=== PATIENT | female | born 1995 | race Caucasian/White ===

== ENCOUNTER 2017-10-13 13:40 | Emergency (ER) | payer OTHER ==
[~2017-10-13] VITALS: Ht 152.4 cm; Wt 86.4 kg
[2017-10-13 13:59] VITALS: TEMP 37.1; Ht 152.4 cm; Wt 86.4 kg
[2017-10-13] MEDS ORDERED: BUPR-83 PO (14:14)
[2017-10-13] MEDS ORDERED: HYD10 PO (14:14)
[2017-10-13] MEDS ORDERED: HYDR5TAB57 PO (14:14)
[2017-10-13] MEDS ORDERED: ONDANSETRON INJ 2 MG/ML 2 ML VIAL IV STA (14:15)
[2017-10-13] MEDS ORDERED: SODIUM CHLORIDE 0.9% 1000ML 1,000 ML IV STA (14:15)
[2017-10-13] MEDS ORDERED: HYDROmorphone INJ 0.5 MG/0.5 ML SYR IV STA (14:19)
[2017-10-13] MEDS ORDERED: KETOROLAC TROMETHAMINE 30 MG/ML VIAL IV STA (14:19)
[2017-10-13 15:05] LABS: BASO % 0.5 %; BASO ABS # 0.04 K/uL (0-0.2); EOS % 1.8 %; EOS ABS # 0.16 K/uL (0-0.5); HEMOGLOBIN 14.4 g/dL (12.0-16.0); IG# 0.04 K/uL (0.00-0.02); LYMPH % 40.8 %; LYMPH ABS # 3.56 K/uL (1.2-3.4); MEAN CELL VOLUME 85.1 fL (80-100); MEAN CORPUSCULAR HEMOGLOBIN 29.9 pg (25-34); MEAN CORPUSCULAR HGB CONC 35.1 g/dl (32-36); MEAN PLATELET VOLUME 10.6 fL (7.4-10.4); MONO % 8.8 %; MONO ABS # 0.77 K/uL (0.11-0.59); NEUT % 47.6 %; NEUT ABS # 4.16 K/uL (1.4-6.5); PLATELET COUNT 318 K/uL (130-400); RED CELL DISTRIBUTION WIDTH CV 12.8 % (11.5-14.5); WHITE BLOOD COUNT 8.73 K/uL (4.8-10.8)
[2017-10-13 15:34] LABS: ALBUMIN 3.8 gm/dl (3.4-5.0); CALCIUM 8.5 mg/dl (8.5-10.1); TOTAL PROTEIN 7.6 gm/dl (6.4-8.2)
--- NOTE | 2017-10-13 15:50 | DIAGNOSTIC IMAGING REPORT ---
ABDOMEN AND PELVIS CT WITHOUT CONTRAST CT DOSE: 1609.09 mGy.cm HISTORY: FLANK PAIN, right TECHNIQUE: Multiaxial CT images of the abdomen and pelvis were performed without the use of intravenous and oral contrast according to the standard department stone protocol. A dose lowering technique was utilized adhering to the principles of ALARA. COMPARISON STUDY: None. FINDINGS: Subpleural nodular densities within the left lower lobe posteriorly may be due to mild dependent change. These are likely benign given the patient's age. No pneumoperitoneum. No pneumatosis. No fractures within the visualized osseous structures. The unenhanced liver, spleen, adrenal glands, pancreas, and gallbladder are unremarkable. No retroperitoneal lymphadenopathy. Subcentimeter mesenteric lymph nodes do not meet CT criteria for pathologic involvement. Multiple bilateral renal calculi. Largest stone within the upper pole the right kidney measures 4 mm. No ureteral stones. No hydronephrosis. Normal bladder. Suboptimal evaluation for bowel pathology due to the lack of intravenous and oral contrast. However, there is no definite bowel wall thickening or obstruction. The visualized appendix is unremarkable. There is an intrauterine device which appears to be within the lower uterine segment. IMPRESSION: 1. Bilateral nephrolithiasis. No ureteral stones. No hydronephrosis. 2. The intrauterine device appears to be within the lower uterine segment. Recommend follow-up pelvic ultrasound for further evaluation. Electronically signed by: Daniel Menchaca M.D. 10/13/2017 3:49 PM Dictated Date/Time: 10/13/2017 3:42 PM
[2017-10-13 16:58] LABS: CREATININE 1.03 mg/dl (0.60-1.20)
--- NOTE | 2017-10-13 17:57 | DIAGNOSTIC IMAGING REPORT ---
PELVIC COMPLETE NON OB CLINICAL HISTORY: right flank pain, IUD PAIN COMPARISON STUDY: None FINDINGS: The uterus measured 8.8 cm. Intrauterine device within the lower uterine segment and cervix.. The endometrial stripe measured 8 mm. The right ovary measured 3.2 cm maximum dimension. Normal vascular flow. The left ovary measured 2.9 cm maximum dimension. Normal vascular flow. There is no ultrasonographic evidence of ovarian torsion. It should be noted that ovarian torsion can be present with normal Doppler ultrasonographic findings. There was no evidence of pathologic free pelvic fluid. IMPRESSION: 1. Intrauterine device located abnormally low within the central uterine canal and extending to the cervix. 2. Remainder of the study is unremarkable. The above report was generated using voice recognition software. It may contain grammatical, syntax or spelling errors. Electronically signed by: Elfego Chen M.D. 10/13/2017 5:56 PM Dictated Date/Time: 10/13/2017 5:54 PM
[2017-10-13] MEDS ORDERED: CIPR-255 PO (18:34)
[2017-10-13] MEDS ORDERED: CIPROFLOXACIN 500 MG TAB PO STA (18:34)
[2017-10-13] MEDS ORDERED: HYDROCORTISONE SOD SUCCINATE 100 MG/2 ML VIAL IV STA (18:34)
[2017-10-13] MEDS ORDERED: ONDANSETRON HOME PACK 4MG OD TAB PO ONE (18:45)
[2017-10-13] MEDS ORDERED: OXYCODONE IR HOME PACK PO ONE (18:45)
[2017-10-13 20:00] VITALS: BP 118/75; PULSE 83; O2SAT 98
--- NOTE | 2017-10-13 21:48 | EMERGENCY ROOM VISIT NOTE ---
History Report prepared by Domi: Amna Patrick Under the Supervision of: Dr. Marcos Martin M.D. First contact with patient: 14:08 Chief Complaint: URINARY SYMPTOMS Stated Complaint: BACK PAIN,PELVIC PAIN,VOMITING,HURTS IN URINATE Nursing Triage Summary: triage note; pt reports lower back pain x 4 days. pt reports pain is increasing. pt reports pain with urination. pt reports hx of kidney stones. pt reports hx of adreanal hyperplasia. 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 She notes her symptoms began with mild back pain 4 days police captain but then her pain has worsened over the past few days so much that she vomited this morning. She rates her pain as a "steady 6/10" in severity and she describes her pain as "jabbing." The patient has lower back pain, right sided abdominal pain, pelvic pain, and pain with urination. She has a history of kidney stones and adrenal hyperplasia. Pt denies LOC, headache, fevers, chills, diaphoresis, visual changes, neck pain, chest pain, breathing difficulties, nausea, melena, hematochezia, numbness, weakness, lymphadenopathy, rash, or other complaints. Her LNMP was 1.5 weeks ago but she notes she has been getting her menstrual cycle every 2 weeks for the past month, however she went to her [facility] and she has an appointment 3 weeks from today to get her IUD removed. The patient regularly takes cortex (3 times a day) and Wellbutrin (once a day). Source of History: patient Onset: 4 days police captain Position: back (lower), other (bladder) Symptom Intensity: "steady 6/10" in severity Quality: other ("jabbing") Timing: worsening Associated Symptoms: + abdominal pain (right sided), + back pain (lower), + urinary symptoms (pain with urination) Note: Positive pelvic pain Review of Systems See HPI for pertinent positives and negatives. A total of ten systems were reviewed and were otherwise negative. Past Medical & Surgical Medical Problems: (1) Adrenal hyperplasia Surgical Problems: (1) S/P tonsillectomy Family History No pertinent family history Social History Smoking Status: Never Smoker Smokeless Tobacco Use: Unknown Marital Status: in relationship Current/Historical Medications Scheduled Bupropion (Wellbutrin), 100 MG PO DAILY Ciprofloxacin Hcl (Cipro), 500 MG PO BID Hydrocortisone (Cortef), 10 MG PO BID Hydrocortisone (Cortef), 5 MG PO QPM Allergies Coded Allergies: Cefpodoxime (Unverified Allergy, Intermediate, HIVES, 10/13/17) Amoxicillin (Unverified Adverse Reaction, Severe, PASS OUT, LOW BLOOD PRESSURE, 10/13/17) Physical Exam Vital Signs Date Time Temp Pulse Resp B/P (MAP) Pulse Ox O2 Delivery O2 Flow Rate FiO2 10/13/17 20:00 83 16 118/75 98 Room Air 10/13/17 19:11 79 114/63 99 Room Air 10/13/17 18:01 76 112/59 99 Room Air 10/13/17 15:08 79 18 116/69 99 Room Air 10/13/17 13:59 37.1 98 18 127/63 99 Room Air Physical Exam GENERAL: Awake, alert, uncomfortable-appearing, in no distress HENT: Normocephalic, atraumatic. Oropharynx unremarkable. EYES: Normal conjunctiva. Sclera non-icteric. NECK: Supple. No nuchal rigidity. FROM. No masses. RESPIRATORY: Clear to auscultation. No wheezes. No rales. Normal respiratory effort. CARDIAC: Normal rate. Normal rhythm. No murmurs. No rubs. Extremities warm and well perfused. Pulses equal. No JVD. GI: Soft, non-distended. No tenderness to palpation. No rebound or guarding. No masses. RECTAL: Deferred. MUSCULOSKELETAL: Atraumatic. Chest examination reveals no tenderness. The back is symmetrical on inspection without obvious abnormality. Right flank and CVA tenderness. No joint edema. LOWER EXTREMITIES: Calves are equal size bilaterally and non-tender. No edema. No discoloration. NEURO: Normal sensorium. No sensory or motor deficits noted. SKIN: No rash or jaundice noted. Medical Decision & Procedures ER Provider Diagnostic Interpretation: Radiology results as stated below per my review and radiologist interpretation: ABDOMEN AND PELVIS CT WITHOUT CONTRAST CT DOSE: 1609.09 mGy.cm HISTORY: FLANK PAIN, right TECHNIQUE: Multiaxial CT images of the abdomen and pelvis were performed without the use of intravenous and oral contrast according to the standard department stone protocol. A dose lowering technique was utilized adhering to the principles of ALARA. COMPARISON STUDY: None. FINDINGS: Subpleural nodular densities within the left lower lobe posteriorly may be due to mild dependent change. These are likely benign given the patient's age. No pneumoperitoneum. No pneumatosis. No fractures within the visualized osseous structures. The unenhanced liver, spleen, adrenal glands, pancreas, and gallbladder are unremarkable. No retroperitoneal lymphadenopathy. Subcentimeter mesenteric lymph nodes do not meet CT criteria for pathologic involvement. Multiple bilateral renal calculi. Largest stone within the upper pole the right kidney measures 4 mm. No ureteral stones. No hydronephrosis. Normal bladder. Suboptimal evaluation for bowel pathology due to the lack of intravenous and oral contrast. However, there is no definite bowel wall thickening or obstruction. The visualized appendix is unremarkable. There is an intrauterine device which appears to be within the lower uterine segment. IMPRESSION: 1. Bilateral nephrolithiasis. No ureteral stones. No hydronephrosis. 2. The intrauterine device appears to be within the lower uterine segment. Recommend follow-up pelvic ultrasound for further evaluation. Electronically signed by: Daniel Menchaca M.D. 10/13/2017 3:49 PM PELVIC COMPLETE NON OB CLINICAL HISTORY: right flank pain, IUD PAIN COMPARISON STUDY: None FINDINGS: The uterus measured 8.8 cm. Intrauterine device within the lower uterine segment and cervix.. The endometrial stripe measured 8 mm. The right ovary measured 3.2 cm maximum dimension. Normal vascular flow. The left ovary measured 2.9 cm maximum dimension. Normal vascular flow. There is no ultrasonographic evidence of ovarian torsion. It should be noted that ovarian torsion can be present with normal Doppler ultrasonographic findings. There was no evidence of pathologic free pelvic fluid. IMPRESSION: 1. Intrauterine device located abnormally low within the central uterine canal and extending to the cervix. 2. Remainder of the study is unremarkable. The above report was generated using voice recognition software. It may contain grammatical, syntax or spelling errors. Electronically signed by: Elfego Chen M.D. 10/13/2017 5:56 PM Laboratory Results 10/13/17 14:53 Red Blood Count 4.82, Mean Corpuscular Volume 85.1, Mean Corpuscular Hemoglobin 29.9, Mean Corpuscular Hemoglobin Concent 35.1, Mean Platelet Volume 10.6, Neutrophils (%) (Auto) 47.6, Lymphocytes (%) (Auto) 40.8, Monocytes (%) (Auto) 8.8, Eosinophils (%) (Auto) 1.8, Basophils (%) (Auto) 0.5, Neutrophils # (Auto) 4.16, Lymphocytes # (Auto) 3.56, Monocytes # (Auto) 0.77, Eosinophils # (Auto) 0.16, Basophils # (Auto) 0.04 10/13/17 14:53 Test 10/13/17 14:15 10/13/17 14:53 Urine Color YELLOW Urine Appearance CLOUDY (CLEAR) Urine pH 6.5 (4.5-7.5) Urine Specific Dana 1.020 (1.000-1.030) Urine Protein NEG (NEG) Urine Glucose (UA) NEG (NEG) Urine Ketones NEG (NEG) Urine Occult Blood NEG (NEG) Urine Nitrite NEG (NEG) Urine Bilirubin NEG (NEG) Urine Urobilinogen NEG (NEG) Urine Leukocyte Esterase SMALL (NEG) Urine WBC (Auto) 5-10 /hpf (0-5) Urine RBC (Auto) 0-4 /hpf (0-4) Urine Hyaline Casts (Auto) 1-5 /lpf (0-5) Urine Epithelial Cells (Auto) >30 /lpf (0-5) Urine Bacteria (Auto) 1+ (NEG) Urine Pathogenic Casts /lpf (0) Urine Test NEG (NEG) White Blood Count 8.73 K/uL (4.8-10.8) Red Blood Count 4.82 M/uL (4.2-5.4) Hemoglobin 14.4 g/dL (12.0-16.0) Hematocrit 41.0 % (37-47) Mean Corpuscular Volume 85.1 fL (80-100) Mean Corpuscular Hemoglobin 29.9 pg (25-34) Mean Corpuscular Hemoglobin Concent 35.1 g/dl (32-36) Platelet Count 318 K/uL (130-400) Mean Platelet Volume 10.6 fL (7.4-10.4) Neutrophils (%) (Auto) 47.6 % Lymphocytes (%) (Auto) 40.8 % Monocytes (%) (Auto) 8.8 % Eosinophils (%) (Auto) 1.8 % Basophils (%) (Auto) 0.5 % Neutrophils # (Auto) 4.16 K/uL (1.4-6.5) Lymphocytes # (Auto) 3.56 K/uL (1.2-3.4) Monocytes # (Auto) 0.77 K/uL (0.11-0.59) Eosinophils # (Auto) 0.16 K/uL (0-0.5) Basophils # (Auto) 0.04 K/uL (0-0.2) RDW Standard Deviation 39.0 fL (36.4-46.3) RDW Coefficient of Variation 12.8 % (11.5-14.5) Immature Granulocyte % (Auto) 0.5 % Immature Granulocyte # (Auto) 0.04 K/uL (0.00-0.02) Anion Gap 8.0 mmol/L (3-11) Est Creatinine Clear Calc Drug Dose 82.2 ml/min Estimated GFR () 88.1 Estimated GFR (Non- 76.0 BUN/Creatinine Ratio 12.6 (10-20) Calcium Level 8.5 mg/dl (8.5-10.1) Total Bilirubin 0.8 mg/dl (0.2-1) Direct Bilirubin 0.2 mg/dl (0-0.2) Aspartate Amino Transf (AST/SGOT) 15 U/L (15-37) Alanine Aminotransferase (ALT/SGPT) 22 U/L (12-78) Alkaline Phosphatase 53 U/L (45-117) Total Protein 7.6 gm/dl (6.4-8.2) Albumin 3.8 gm/dl (3.4-5.0) Lipase 115 U/L (73-393) Laboratory results reviewed by me Medications Administered Medications (Trade) Dose Ordered Sig/Katie Route Start Time Stop Time Status Last Admin Dose Admin Ondansetron HCl (Zofran Inj) 4 mg NOW STAT IV 10/13/17 14:15 10/13/17 14:18 DC 10/13/17 15:04 4 MG Sodium Chloride 1,000 ml @ 999 mls/hr Q1H1M STAT IV 10/13/17 14:15 10/13/17 15:15 DC 10/13/17 15:04 999 MLS/HR Hydromorphone HCl (Dilaudid Inj) 0.5 mg NOW STAT IV 10/13/17 14:19 10/13/17 14:21 DC 8/6/18 15:05 0.5 MG Ketorolac Tromethamine (Toradol Inj) 10 mg NOW STAT IV 10/13/17 14:19 10/13/17 14:21 DC 10/13/17 15:05 10 MG Hydrocortisone Sodium Succinate (Solu-Cortef IV) 100 mg NOW STAT IV 10/13/17 18:34 10/13/17 18:36 DC 10/13/17 19:08 100 MG Ciprofloxacin (Cipro Tab) 500 mg NOW STAT PO 10/13/17 18:34 10/13/17 18:36 DC 10/13/17 19:09 500 MG ED Course 1414: The patient was evaluated in room B11. A complete history and physical exam was performed. 1415: Ordered Sodium Chloride 1000 ml @ 999 mls/hr IV, Zofran Inj 4 mg IV 1419: Ordered Toradol Inj 10 mg IV, Dilaudid Inj 0.5 mg IV 1558: I checked on the patient at this time. She was feeling better pain bellamy. She will go to ultrasound. 1829: I checked on the patient at this time. She is feeling better .She will receive a stress dose of steroids. 1834: Ordered Cipro Tab 500 mg PO, Solu-Cortef IV 100 mg IV 1845: Ordered Oxycodone HCL 1 homepack PO, Ondansetron HCl 1 homepack PO 0: I reevaluated the patient. Discussed results and discharge instructions: She verbalized understanding and agreement. The patient is ready for discharge. Medical Decision No prior records in the EMR. Triage Nursing notes reviewed and agree them. The patient's history was concerning for flank and abdominal pain. Differential diagnosis: Etiologies such as renal colic, UTI, appendicitis, diverticulitis, mesenteric ischemia, aortic pathology, infections, inflammatory bowel disease, PUD, biliary pathology, as well as others were entertained. Physical examination findings: As above. ER treatment provided: IV Toradol IV Zofran IV Dilaudid On reassessment the patient felt better. Hydrocortisone 100 mg IV Oral Cipro Diagnostic interpretation by me: The labs revealed an unremarkable CBC and chemistry panel. LFTs negative. Urinalysis revealed some bacteria. Moderate epithelial cells noted. Esterase noted. Culture sent. Imaging studies: CT of the abdomen and pelvis and ultrasound as above. The patient complained of right flank pain. She has obvious kidney stones seen in the right kidney. There is no obvious ureterolithiasis seen. She noted symptoms of a urinary tract infection and has a slightly abnormal urinalysis. Because of the symptoms she will be treated. The remainder of her imaging did not reveal any significant abnormalities. She did not really have significant pelvic symptoms. An ultrasound was performed to evaluate the ovary and other issues. She does have a low-lying IUD and has a follow-up with [facility] for this. I do not believe that this is causing the pain as she had CVA tenderness. Also right flank tenderness. She did not have any deep lower right quadrant tenderness. No suprapubic tenderness. She took her steroids after vomiting today. She was given a stress dose of steroids. The patient will be prescribed Cipro. She has been on this in the past without any issues. I did discuss risks and benefits. The patient will follow-up closely as an outpatient. If she worsens in any way she will be back. She plans on returning home tomorrow. She feels comfortable with conservative management. I gave my usual and customary discussion regarding this issue. By the evaluation outlined above other emergent etiologies such as those listed in the differential, as well as others, were deemed relatively unlikely. The patient was educated about the findings as listed above. All questions were answered and the patient was pleased with the treatment. Return instructions were outlined and the patient was discharged in stable condition. The patient was referred to her PCP for follow-up for a recheck of the current condition. Medication Reconcilliation Current Medication List: was personally reviewed by me Blood Pressure Screening Patient's blood pressure: Normal blood pressure Blood pressure disposition: Did not require urgent referral Impression Primary Impression: Right flank pain Additional Impressions: Symptoms of urinary tract infection Nephrolithiasis IUD (intrauterine device) in place Scribe Attestation The scribe's documentation has been prepared under my direction and personally reviewed by me in its entirety. I confirm that the note above accurately reflects all work, treatment, procedures, and medical decision making performed by me. Departure Information Dispostion Home / Self-Care Prescriptions Ciprofloxacin Hcl (CIPRO) 500 Mg Tab 500 MG PO BID, #13 TAB Prov: Marcos Martin MD 10/13/17 Forms HOME CARE DOCUMENTATION FORM, IMPORTANT VISIT INFORMATION Patient Instructions My [facility] Additional Instructions Ciprofloxacin(Cipro) 500mg: Take one pill twice daily for 7 days. All antibiotics can cause diarrhea. If this occurs and you feel worse or it does not resolve in 1-2 days follow up with your doctor or return to the Emergency Department as this could be signs of serious underlying problems. If you experience any pain in your tendons or any tendon injury return to the ER for re -evaluation. Any medication can cause an allergic reaction, stop the pills immediately and return to the ER for rash, hives, breathing difficulties, or swelling. Oxycodone 5 mg: Take 1-2 pills every 6 hours as needed for pain. Avoid alcohol , operating machinery or dangerous equipment, working on ladders or roofs, DRIVING, or situations where being under the influence may be dangerous. It is recommended to use a stool softener such as Colace, 100mg twice daily while taking this medication to avoid constipation. Zofran 4 mg oral dissolving tablets: take one tablet and allow it to melt in your mouth every 4 hours as needed for nausea. Ibuprofen(Motrin, Advil) may be used for fever or pain. Use 600mg every six hours as needed. Take with food. Avoid using more than 2400mg in a 24 hour period. Do not use 2400mg per day for more than three consecutive days without physician direction. Prolonged inappropriate use can lead to stomach upset or ulcers. (AND/OR) Acetaminophen(Tylenol) may be used for fever or pain. Use 1000mg every six hours as needed. Avoid using more than 4000mg in a 24 hour period. Rest and drink plenty of fluids. Continue current medications. Return to the ER immediately for worsening or persistent abdominal pain, vomiting, fevers, back or flank pain, worsening of your condition, or as needed. Follow up with your primary physician within 2-3 days for a recheck of the current condition. Problem Qualifiers
== END 2017-10-13 20:00 | disposition home or self-care (01) ==
LOC: C.EDB 13:42
DX: N20.0 Calculus of kidney (principal); R30.0 Dysuria; R10.2 Pelvic and perineal pain; Z88.0 Allergy status to penicillin; Z97.5 Presence of (intrauterine) contraceptive device; Z88.1 Allergy status to other antibiotic agents

== ENCOUNTER 2018-04-05 15:02 | Inpatient (IN) ==
[2018-04-05] MEDS ORDERED: SODIUM CHLORIDE 0.9% 1000ML 1,000 ML IV ONE ×2 (15:03→18:38)
[2018-04-05 15:31] LABS: Basophils # (auto) 0.02 K/uL (0-0.2); Basophils % (auto) 0.2 %; Eosinophils # (auto) 0.06 K/uL (0-0.5); Eosinophils % (auto) 0.5 %; Hematocrit (blood only) 39.8 % (37-47); Hemoglobin 13.8 g/dL (12.0-16.0); Immature Granulocytes # (auto) 0.05 K/uL (0.00-0.02); Immature Granulocytes % (auto) 0.4 %; Lymphocytes # (auto) 1.28 K/uL (1.2-3.4); Lymphocytes % (auto) 9.7 %; Mean Corpuscular Hgb Conc 34.7 g/dL (32-36); Mean Platelet Volume 10.4 fL (7.4-10.4); Monocytes # (auto) 0.95 K/uL (0.11-0.59); Monocytes % (auto) 7.2 %; Neutrophils # (auto) 10.87 K/uL (1.4-6.5); Platelet Count 282 K/uL (130-400); RDW Coefficient of Variation 12.7 % (11.5-14.5); RDW Standard Deviation 40.3 fL (36.4-46.3); Red Blood Count 4.63 M/uL (4.2-5.4); White Blood Count 13.23 K/uL (4.8-10.8)
[2018-04-05] MEDS ORDERED: CEFEPIME 1,000 MG in SYRINGE 0 ML IV STA (15:47)
[2018-04-05] MEDS ORDERED: HYDROmorphone INJ 0.5 MG/0.5 ML SYR IV PRN ×2 (15:47→21:24)
[2018-04-05 15:49] LABS: Albumin Level 3.5 gm/dl (3.4-5.0); BUN Creatinine Ratio 15.9 (10-20); Calcium 8.4 mg/dl (8.5-10.1); Creatinine Clr Calc Pharmacy 83.3 ml/min; Est GFR (African American) 88.5; Est GFR (Non-African American) 76.4; Potassium 3.5 mmol/L (3.5-5.1)
[2018-04-05] MEDS ORDERED: cefTRIAXone SODIUM 1,000 MG/50 ML BAG IV STA (15:57)
[2018-04-05 16:07] LABS: Bilirubin,Total 1.6 mg/dl (0.2-1); Globulin 3.4 gm/dl (2.5-4.0); Total Protein 6.9 gm/dl (6.4-8.2)
[2018-04-05] MEDS ORDERED: PIPERACILL/TAZOBAC CONSULT ACTIVE PRN (16:10)
[2018-04-05] MEDS ORDERED: PIPERACILLIN/TAZOBACTAM 4.5 GM/120 ML BAG IV ONE (16:10)
[2018-04-05] MEDS ORDERED: HYDROCORTISONE SOD 25 MG in SYRINGE 0 ML IV ONE (16:30)
[2018-04-05] MEDS ORDERED: HYDROCORTISONE SOD SUCCINATE 100 MG/2 ML VIAL ONE (16:38)
[2018-04-05] MEDS ORDERED: KETOROLAC TROMETHAMINE 15 MG/ML VIAL IV STA (17:10)
[2018-04-05 19:13] LABS: Appearance Urine Cloudy (Clear); Bacteria Urine Automated 4+ (Negative); Bilirubin Urine Negative (Negative); Color Urine Yellow; Epithelial Cell Urine Auto >30 /lpf (0-5); Glucose Urine UA Negative (Negative); Ketones Urine Negative (Negative); Leukocyte Esterase Urine 3+ (Negative); Nitrite Urine Negative (Negative); Protein Urine Negative (Negative); Specific Gravity Urine 1.017 (1.000-1.030); Urobilinogen Urine Negative (Negative); WBC Urine Automated >30 /hpf (0-5)
[2018-04-05 19:25] LABS: Cast Urine Automated 0 /lpf (0-5)
--- NOTE | 2018-04-05 19:52 | History & Physical Report ---
Date of Service April 05, 2018 Assessment & Plan (1) Recurrent kidney stones: New episode of renal colic, patient intolerant to p.o. secondary to vomiting secondary to pain. Urology was consulted and will plan to perform procedure on patient if she does not spontaneously pass the stone overnight. N.p.o. after midnight. Continue supportive care with Dilaudid, oxycodone, Toradol as needed as well as antiemetic therapy. Flomax is started tonight and aggressive IV fluids. (2) Complicated UTI (urinary tract infection): Dysuria is present in setting of bacteruria. Despite presence of at these suggesting contamination, will continue with empiric levofloxacin. She denies any fevers or chills. Will monitor on telemetry in the setting of infection and adrenal insufficiency history. She does meet sepsis criteria but does not appear clinically septic. Tachycardia is likely secondary to pain and leukocytosis secondary to inflammation from stone and possibly infection. Continue stress dose steroids for now. 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 (4) Adrenal insufficiency: History of congenital adrenal hyperplasia, on Cortef 25 mg p.o. daily. Typical stress dose for her is doubling her Cortef p.o., however, because she cannot tolerate p.o. will continue with hydrocortisone 50 mg IV every 6 until clinical improvement and then recommend taper back to regular dose. (5) DVT prophylaxis: SCDs, ambulation Full code Disposition-telemetry Michaelle Augustin DO [facility] Hospitalist History of Present Illness Chief Complaint: flank pain, nausea and vomiting Primary Care Provider: NO PCP 23-year-old female presents for the second time in 24 hours for severe right- sided flank pain and persistent vomiting on arrival home. She presented to the ER overnight last night after being awoken with severe right-sided flank pain. She was diagnosed with a kidney stone and felt better after pain medications so was sent home with oxycodone and Flomax. She did not fill the Flomax and try to take an oxycodone but vomited it up. Her pain persisted so she came back to the ER. A white blood cell count is 13 and she is now more tachycardic. She denies any fevers or chills. Urinalysis reveals contamination, but with dysuria UTI is suspected. She underwent an abdomen and pelvis CT without contrast which revealed an obstructing 4 mm proximal right ureteral calculus with resultant right-sided hydronephrosis. She also had bilateral nonobstructing largely punctate renal calculi that were seen. She does have a history of frequent kidney stones, quoting 11 episodes in the past. She denies ever being stented before and has never had surgery to have these removed. She does admit to drinking excessive coffee and soda products, and not using as much water to stay hydrated as she should. She does have a history of congenital adrenal hyperplasia and takes Cortef regularly. Her stress dose is typically double her typical dose (25mg daily), however at this time she is vomiting and unable to tolerate p.o. Her abdominal/flank pain is improved somewhat with Dilaudid in the ER. She is also been given Zosyn and IV fluids as well as Zofran. Of note, she has recently moved to the area from [facility] and does not have an established primary care physician. Review of systems reveals abnormal uterine bleeding, occurring since her Mirena IUD was removed in October 2017. She has not seen a slab lifting supervisor for this issue as she still needs to establish care in this area. She reports her menstrual cycle is very heavy, and comes every 3 weeks. She denies intercourse at this time, but otherwise is not using any contraception. Urine test is negative today. Dr. Tello was contacted with [facility] urology and will plan to stand her tomorrow if she does not spontaneously pass her stone. Allergies Allergy/AdvReac Type Severity Reaction Status Date / Time cefpodoxime Allergy Severe HIVES Unverified 04/05/18 16:27 amoxicillin AdvReac Intermediate PASS OUT, Unverified 04/05/18 16:27 LOW BLOOD PRESSURE Home Medications Home Medications Medication Instructions Recorded Confirmed Type hydrocortisone 5 mg PO QPM 04/05/18 04/05/18 History hydrocortisone 10 mg PO BID 04/05/18 04/05/18 History ondansetron 4 mg PO Q6H PRN #12 tab 04/05/18 04/05/18 Rx oxycodone 5 - 10 mg PO Q6H PRN 04/05/18 04/05/18 History tamsulosin [Flomax] 0.4 mg PO DAILY #7 cap 04/05/18 04/05/18 Rx Past Med/Surg History Medical History Abnormal uterine bleeding (Chronic) 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 Physical Exam 2 Vital Signs (Past 24 Hours): Last Vital Signs Temp 37.2 C 04/05/18 15:09 Pulse 105 H 04/05/18 19:32 Resp 22 04/05/18 19:32 BP 109/57 L 04/05/18 19:32 Pulse Ox 100 04/05/18 19:32 CONSTITUTIONAL: WNWD, vitals as above, generally well-appearing EYES: PERRL, normal conjuctivae, no scleral icterus ENT: MM are dry RESPIRATORY: clear to auscultation bilaterally, no crackles, rales or wheezes, normal respiratory effort CARDIOVASCULAR: tachy rate and rhythm, S1 and 2 heard without murmurs, gallops or rubs, no JVD, no peripheral edema GASTROINTESTINAL: normal bowel sounds, soft, nontender, no hepatomegaly, no guarding, +CVA tenderness on the Right MUSCULOSKELETAL: strength 5/5 throughout, head is normocephalic and atraumatic SKIN: warm and dry NEUROLOGIC: CN 2-12 grossly intact, no sensory deficit, normal cognition, no gross focal deficits. PSYCHIATRIC: alert cooperative and oriented to person, place and time. Euthymic mood Results & Data Laboratory Results Short CBC 04/05/18 Range/Units 15:23 WBC 13.23 H (4.8-10.8) K/uL Hgb 13.8 (12.0-16.0) g/dL Hct 39.8 (37-47) % Plt Count 282 (130-400) K/uL BMP 04/05/18 15:23 Sodium 136 Potassium 3.5 Chloride 107 Carbon Dioxide 23 BUN 16 Creatinine 1.02 Glucose 101 H Calcium 8.4 L Liver Function 04/05/18 Range/Units 15:23 Total Bilirubin 1.6 H D (0.2-1) mg/dl AST 17 (15-37) U/L ALT 29 (12-78) U/L Alkaline Phosphatase 54 (45-117) U/L Albumin 3.5 (3.4-5.0) gm/dl Urine 04/05/18 Range/Units 19:07 Urine Color Yellow Urine Appearance Cloudy H (Clear) Urine pH 5.0 (4.5-7.5) Ur Specific [place] 1.017 (1.000-1.030) Urine Protein Negative (Negative) Urine Glucose (UA) Negative (Negative) Diagnostic Findings CT A/P: IMPRESSION: 1. Obstructing 4 mm proximal right ureteral calculus with resultant mild right hydronephrosis. 2. Bilateral nonobstructing largely punctate renal calculi. 3. Thin mural calcification in the ovaries. This is of uncertain significance. A nonurgent pelvic ultrasound could be considered on an outpatient basis though the most recent pelvic ultrasound from October was normal, when this finding was also present on the concurrent CT. Medications Administered Dilaudid 0.5mg IV Hydrocortisone 100mg IV NSS-2L Zosyn-4.5gm IV Toradol 15mg IV Code Status & VTE Plan Code Status Full VTE Prophylaxis Plan VTE Prophylaxis will be ordered: Yes Reason for no VTE drug order: Treatment not tolerated Critical Care Time Critical Care Time: No
[2018-04-05] MEDS ORDERED: PROMETHAZINE HCL 25 MG TAB PO PRN (21:24)
[2018-04-05] MEDS ORDERED: HYDROCORTISONE SOD SUCCINATE 100 MG/2 ML VIAL IV SCH (21:24)
[2018-04-05] MEDS ORDERED: OXYCODONE/ACETAMINOPHEN 5mg/325mg TAB PO PRN (21:24)
[2018-04-05] MEDS ORDERED: KETOROLAC 30 MG/ML VIAL IV PRN (21:24)
[2018-04-05] MEDS ORDERED: POLYETHYLENE (MIRALAX) 17 GM PACK PO PRN (21:24)
[2018-04-05] MEDS ORDERED: LEVOFLOXACIN/D5W 750 MG/150 ML BAG IV SCH (22:00)
[2018-04-05] MEDS: TAMSULOSIN HCL 0.4 MG CAP PO SCH (22:53)
[2018-04-05] MEDS: SODIUM CHLORIDE 0.9% 1000ML 1,000 ML IV SCH (22:53)
[2018-04-05] MEDS: HYDROCORTISONE SOD 50 MG in SYRINGE 0 ML IV SCH (23:45)
[2018-04-05] MEDS: ACETAMINOPHEN 325 MG TAB PO PRN (23:46)
[2018-04-06] MEDS: ONDANSETRON INJ 2 MG/ML 2 ML VIAL IV PRN (04:47)
[2018-04-06] MEDS: HYDROCORTISONE SOD 50 MG in SYRINGE 0 ML IV SCH ×2 (05:49→12:48)
[2018-04-06] MEDS: SODIUM CHLORIDE 0.9% 1000ML 1,000 ML IV SCH ×3 (05:50→19:29)
[2018-04-06] MEDS ORDERED: INFLUENZA VIRUS QUAD VACCINE 0.5 ML SYR IM ONE (06:15)
[2018-04-06] MEDS ORDERED: INFLUENZA ADMINISTRATION CHARGE ONE (06:15)
[2018-04-06 07:20] LABS: Basophils # (auto) 0.02 K/uL (0-0.2); Basophils % (auto) 0.2 %; Hematocrit (blood only) 36.3 % (37-47); Hemoglobin 12.3 g/dL (12.0-16.0); Immature Granulocytes # (auto) 0.04 K/uL (0.00-0.02); Immature Granulocytes % (auto) 0.4 %; Lymphocytes # (auto) 0.82 K/uL (1.2-3.4); Lymphocytes % (auto) 8.7 %; Mean Corpuscular Hgb Conc 33.9 g/dL (32-36); Mean Corpuscular Volume 85.4 fL (80-100); Mean Platelet Volume 10.2 fL (7.4-10.4); Monocytes # (auto) 0.64 K/uL (0.11-0.59); Monocytes % (auto) 6.8 %; Neutrophils # (auto) 7.89 K/uL (1.4-6.5); Neutrophils % (auto) 83.9 %; Platelet Count 231 K/uL (130-400); RDW Coefficient of Variation 12.9 % (11.5-14.5); RDW Standard Deviation 40.3 fL (36.4-46.3); Red Blood Count 4.25 M/uL (4.2-5.4); White Blood Count 9.41 K/uL (4.8-10.8)
[2018-04-06 08:00] LABS: BUN Creatinine Ratio 12.3 (10-20); Calcium 7.6 mg/dl (8.5-10.1); Est GFR (Non-African American) 96.6; Potassium 3.5 mmol/L (3.5-5.1)
--- NOTE | 2018-04-06 08:51 | Urology Consultation ---
Date of Consultation April 06, 2018 Assessment & Plan (1) Calculus of proximal right ureter: (2) Renal colic: (3) Complicated UTI (urinary tract infection): (4) Nausea & vomitinyo F with obstructing 4mm R ureteral stone, mild hydronephrosis, fevers , +UA. Hx of adrenall insufficiency - taking hydrocortisone BID for management. Febrile with tachycardia overnight, still with nausea. No emesis since ED. Pain better controlled with IV pain medication. Rating 3/10 at this time. Given clinical presentation overnight, we discussed the recommendation to intervene with ureteral stent placement to allow maximal drainage in detail. Patient is very cooperative and agreeable to this plan. Denies difficulty with anesthesia in the past. Plan to proceed with cystoscopy, R retrograde pyelogram and R ureteral stent placement today with Dr. Canales. Risk and benefits reviewed. Covered with Levaquin IV daily. All questions answered. Definitive stone management to be determined. Thank you for the consultation, we will continue to follow with primary team. History of Present Illness Reason for Consultation: UTI, obstructing R ureteral stone, febrile Requesting Physician: Dr. Alanis Attending Physician: Ivonne Alanis MD History of Present Illness 23yo F with long standing history of adrenal insufficiency and bilateral nephrolithiasis. Presented to ED with acute onset R flank pain, nausea and emesis yesterday. CT reveals obstructing 4mm midureteral stone, mild hydro. Bilateral stable renal calculi. Abnormal UA, UC&S prelim positive gram negative bacilli. Fever spiked at 39.4C with tachycardia last evening at midnight. WBC slightly elevated, Cr stable. Hx stones since age 12, this is her 11th stone. She has never required intervention, never required admission for stones in the past. Follows with Dr. Bermudez, Urology, in [facility]. Living in [facility] for the next year, in [employer] school. No previous formal metabolic evaluation, but has been told she had a "high protein" diet in the past that could contribute. Largest stone spontaneously passed was 8mm per patient report. Allergies Allergy/AdvReac Type Severity Reaction Status Date / Time cefpodoxime Allergy Severe HIVES Unverified 04/05/18 16:27 amoxicillin AdvReac Intermediate PASS OUT, Unverified 04/05/18 16:27 LOW BLOOD PRESSURE Home Medications Home Medications Medication Instructions Recorded Confirmed Type hydrocortisone 5 mg PO QPM 04/05/18 04/05/18 History hydrocortisone 10 mg PO BID 04/05/18 04/05/18 History ondansetron 4 mg PO Q6H PRN #12 tab 04/05/18 04/05/18 Rx oxycodone 5 - 10 mg PO Q6H PRN 04/05/18 04/05/18 History tamsulosin [Flomax] 0.4 mg PO DAILY #7 cap 04/05/18 04/05/18 Rx Patient History Medical History Abnormal uterine bleeding (Chronic) 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), late onset (Chronic) Recurrent kidney stones (Chronic) Surgical History S/P tonsillectomy and adenoidectomy (Resolved) Status post third molar tooth extraction (Resolved) Family History Other No pertinent family history Social History Current Living Situation: Significant Other Other Information That Helps Us Care for You: No Feels Safe at Home: Yes Safety Concerns: Feels Safe At This Time Smoking Status: Never smoker Do You Dip or Chew Tobacco: No Second Hand Exposure: No Tobacco Cessation Education Requested by Patient: No Hx Alcohol Use: No Hx Substance Use: No Beliefs That Will Affect Care: None Preferred Language: Guyanese Communication Ability: Effective Oral And Maxillofacial Surgeon Required: No Review of Systems Constitutional: + fever (last evening) and + fatigue; no chills Eyes: no problem reported Ear, Nose, Mouth, Throat: no ear pain Respiratory: no cough, no chest congestion and no dyspnea Cardiovascular: no chest pain Gastrointestinal: + nausea; no abdominal pain and no vomiting Genitourinary (Female): + dysuria and + urinary frequency; no urinary hesitancy and no hematuria Musculoskeletal: no back pain and no neck pain Integumentary: no rash Neurologic: no behavioral changes Psychiatric: no hopelessness Endocrine: no polydipsia Hematologic / Lymphatic: no easy bleeding Physical Exam 2 Vital Signs (Past 24 Hours): Last Vital Signs Temp 37.3 C 04/06/18 08:10 Pulse 93 H 04/06/18 08:10 Resp 19 04/06/18 08:10 BP 107/73 04/06/18 08:10 Pulse Ox 98 04/06/18 08:10 Constitutional: cooperative; no acute distress Eyes: no photophobia ENMT: Nose: no epistaxis Neck: trachea midline Respiratory: no respiratory distress, no labored breathing and does not use accessory muscles Cardiovascular: Vessels: no JVD Gastrointestinal (Abdomen): Percussion/Palpation: abdomen soft; abdomen nontender Skin: no rashes, warm and dry Neurologic: awake; not confused Psychiatric: Orientation: alert and oriented x 3 Apperance: appropriately groomed Eye Contact: good eye contact Genitourinary: mild suprapubic tenderness, reports full bladder at time of evaluation Results & Data Laboratory Results Laboratory Tests 04/05/18 04/05/18 04/05/18 03:30 15:23 15:23 WBC 12.80 H 13.23 H Sodium Potassium BUN 16 Creatinine 1.02 Glucose POC Lactic Acid Vic 04/05/18 04/06/18 04/06/18 15:29 06:37 06:37 WBC 9.41 Sodium 138 Potassium 3.5 BUN 10 D Creatinine 0.84 Glucose 101 H POC Lactic Acid Vic 1.94 H _ (1) Nausea & vomiting Vomiting Intractability: non-intractable Vomiting type: unspecified Qualified Code(s): R11.2 - Nausea with vomiting, unspecified
[2018-04-06] MEDS ORDERED: PROMETHAZINE HCL 12.5 MG in SODIUM CHLORIDE 0.9% 50 ML IV PRN (09:14)
[2018-04-06] MEDS ORDERED: ONDANSETRON INJ 2 MG/ML 2 ML VIAL IV PRN (09:14)
[2018-04-06] MEDS ORDERED: ePHEDrine sulfate 50 MG/ML AMP IV PRN (09:14)
[2018-04-06] MEDS ORDERED: HYDROmorphone INJ 1 MG/ML SYRINGE IV PRN (09:14)
[2018-04-06] MEDS ORDERED: PHENYLEPHRINE 100MCG/ML 5ML SYR IV PRN (09:14)
[2018-04-06] MEDS ORDERED: ATROPINE SULFATE 0.1 MG/ML 10ML SYR IV PRN (09:14)
[2018-04-06] MEDS ORDERED: fentaNYL citrate 100 MCG/2 ML VIAL IV PRN (09:14)
--- NOTE | 2018-04-06 09:21 | Anesthesiology Consultation ---
Date of Service April 06, 2018 Assessment & Plan Chart Review Chart Review: Acceptable Risk for Surgery and Patient NOT seen in Pre Admission Testing Consults Requested none ASA [id number] Proposed Anesthesia Anesthesia Type: General Risk / Benefits Reviewed With: PT / POA / Parent / Guardian, Accepts Plan and Informed Consent Obtained Additional Notes Pt takes hydrocortison since age 1 for adrenal insufficiency. Was given her stress dose this am NPO Date Last Intake of Fluids: 04/06/18 Time Last Intake of Fluids: 09:04 Last Intake of Fluids Comment: sip with percocet Date Last Intake of Solids: 04/04/18 Time Last Intake of Solids: 18:30 History Surgery Operation Date: 04/06/18 12:45 Proposed Procedures p Cystoscopy Retrograde, Right Stent Insertion - Fernando Canales MD Height/Weight Height: 1.5 m Weight: 93 kg Allergies Allergy/AdvReac Type Severity Reaction Status Date / Time cefpodoxime Allergy Severe HIVES Unverified 04/05/18 16:27 amoxicillin AdvReac Intermediate PASS OUT, Unverified 04/05/18 16:27 LOW BLOOD PRESSURE Medications Home Medications Medication Instructions Recorded Confirmed Last Taken hydrocortisone 5 mg PO QPM 04/05/18 04/05/18 Unknown hydrocortisone 10 mg PO BID 04/05/18 04/05/18 Unknown ondansetron 4 mg PO Q6H PRN #12 tab 04/05/18 04/05/18 Unknown oxycodone 5 - 10 mg PO Q6H PRN 04/05/18 04/05/18 Unknown tamsulosin [Flomax] 0.4 mg PO DAILY #7 cap 04/05/18 04/05/18 Unknown Active Medications Generic Name Dose Route Start Last Admin Trade Name Freq PRN Reason Stop Dose Admin Acetaminophen 650 mg 04/05/18 21:24 04/05/18 23:46 Tylenol PO 05/05/18 21:23 650 mg Q4H PRN Administration Pain or Fever Hydromorphone HCl 0.5 mg 04/05/18 21:24 04/05/18 22:50 Dilaudid IV 04/19/18 21:23 0.5 mg Q1H PRN Administration Severe Pain Levofloxacin/Dextrose 750 mg in 150 mls @ 100 mls/hr 04/05/18 22:00 04/06/18 01:03 Levaquin/D5w IV 04/15/18 21:59 Infused Q24H ALEX Infusion Sodium Chloride 1,000 mls @ 150 mls/hr 04/05/18 21:24 04/06/18 05:50 Nss 1000ml IV 05/05/18 21:23 150 mls/hr .Q6H40M ALEX Administration Hydrocortisone Sodium 1 mls @ 4 mls/min 04/06/18 00:00 04/06/18 05:49 Succinate 50 mg/ Syringe IV 05/06/18 00:00 4 mls/min Q6 ALEX Administration Ondansetron HCl 4 mg 04/05/18 21:24 04/06/18 04:47 Zofran IV 05/05/18 21:23 4 mg Q8H PRN Administration Nausea Oxycodone/Acetaminophen 1 tab 04/05/18 21:24 04/06/18 08:59 Percocet 5mg/325mg PO 04/19/18 21:23 1 tab Q4H PRN Administration Pain Tamsulosin HCl 0.4 mg 04/05/18 21:24 04/05/18 22:53 Flomax PO 05/05/18 21:23 0.4 mg HS ALEX Administration Past Medical History Medical History Abnormal uterine bleeding (Chronic) 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), 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 Recurrent kidney stones (Chronic) Morbid obesity Past Family History Family History Other No pertinent family history Past Surgical History Surgical History S/P tonsillectomy and adenoidectomy (Resolved) Status post third molar tooth extraction (Resolved) Past Anesthesia History No Hx of Anesthesia Complications and No Family Hx of Anesthesia Complications History of PONV No Motion Sickness Screening History of Motion Sickness: No Social History Smoking Status: Never smoker Do You Dip or Chew Tobacco: No Hx Alcohol Use: No Hx Substance Use: No Exercise / Class Metabolic Activity II 4-5 Yardwork/Stairs/Walk up hill Physical Exam Vital Signs Last Vital Signs Temp 37.3 C 04/06/18 08:10 Pulse 93 H 04/06/18 08:10 Resp 19 04/06/18 08:10 BP 107/73 04/06/18 08:10 Pulse Ox 98 04/06/18 08:10 Constitutional + morbidly obese ENMT Mouth: no TMJ abnormality and no TMJ clicking Thyromental Distance: > or= 3.5 Finger Breadths Mallampati Class: III Neck normal visual inspection; neck extension not limited Respiratory Auscultation: lungs clear to auscultation bilaterally Cardiovascular Rate/Rhythm: regular rhythm; + abnormal rate (Sinus tachy) Psychiatric Orientation: alert and oriented x 3 Testing Laboratory Results 04/06/18 06:37 04/06/18 06:37 Urine Color Yellow 04/05/18 19:07 Urine Appearance Cloudy (Clear) H 04/05/18 19:07 Urine pH 5.0 (4.5-7.5) 04/05/18 19:07 Ur Specific [place] 1.017 (1.000-1.030) 04/05/18 19:07 Urine Protein Negative (Negative) 04/05/18 19:07 Urine Glucose (UA) Negative (Negative) 04/05/18 19:07 Urine Ketones Negative (Negative) 04/05/18 19:07 Urine Nitrite Negative (Negative) 04/05/18 19:07 Ur Leukocyte Esterase 3+ (Negative) H 04/05/18 19:07 Urine WBC (Auto) >30 /hpf (0-5) H 04/05/18 19:07 Urine RBC (Auto) 0-4 /hpf (0-4) 04/05/18 19:07 U Hyaline Cast (Auto) 0 /lpf (0-5) 04/05/18 19:07 U Epithel Cells (Auto) >30 /lpf (0-5) H 04/05/18 19:07 Urine Bacteria (Auto) 4+ (Negative) H 04/05/18 19:07
--- NOTE | 2018-04-06 09:26 | Anesthesiology Consultation ---
Date of Service April 06, 2018 Assessment & Plan (1) Encounter for pre-operative examination: Chart Review Chart Review: Acceptable Risk for Surgery and Patient NOT seen in Pre Admission Testing Patient on 50mg IV hydrocortisone q6 hours, last dose 0549 04/06/2018. Consider larger stress dose for procedure. Consults Requested none NPO Date Last Intake of Fluids: 04/06/18 Time Last Intake of Fluids: 09:04 Last Intake of Fluids Comment: sip with percocet Date Last Intake of Solids: 04/04/18 Time Last Intake of Solids: 18:30 History Surgery Operation Date: 04/06/18 12:45 Proposed Procedures p Cystoscopy Retrograde, Right Stent Insertion - Fernando Canales MD Height/Weight Height: 4 ft 11 in Weight: 93 kg Allergies Allergy/AdvReac Type Severity Reaction Status Date / Time cefpodoxime Allergy Severe HIVES Unverified 04/05/18 16:27 amoxicillin AdvReac Intermediate PASS OUT, Unverified 04/05/18 16:27 LOW BLOOD PRESSURE Medications Home Medications Medication Instructions Recorded Confirmed Last Taken hydrocortisone 5 mg PO QPM 04/05/18 04/05/18 Unknown hydrocortisone 10 mg PO BID 04/05/18 04/05/18 Unknown ondansetron 4 mg PO Q6H PRN #12 tab 04/05/18 04/05/18 Unknown oxycodone 5 - 10 mg PO Q6H PRN 04/05/18 04/05/18 Unknown tamsulosin [Flomax] 0.4 mg PO DAILY #7 cap 04/05/18 04/05/18 Unknown Active Medications Generic Name Dose Route Start Last Admin Trade Name Freq PRN Reason Stop Dose Admin Acetaminophen 650 mg 04/05/18 21:24 04/05/18 23:46 Tylenol PO 05/05/18 21:23 650 mg Q4H PRN Administration Pain or Fever Hydromorphone HCl 0.5 mg 04/05/18 21:24 04/05/18 22:50 Dilaudid IV 04/19/18 21:23 0.5 mg Q1H PRN Administration Severe Pain Levofloxacin/Dextrose 750 mg in 150 mls @ 100 mls/hr 04/05/18 22:00 04/06/18 01:03 Levaquin/D5w IV 04/15/18 21:59 Infused Q24H ALEX Infusion Sodium Chloride 1,000 mls @ 150 mls/hr 04/05/18 21:24 04/06/18 05:50 Nss 1000ml IV 05/05/18 21:23 150 mls/hr .Q6H40M ALEX Administration Hydrocortisone Sodium 1 mls @ 4 mls/min 04/06/18 00:00 04/06/18 05:49 Succinate 50 mg/ Syringe IV 05/06/18 00:00 4 mls/min Q6 ALEX Administration Ondansetron HCl 4 mg 04/05/18 21:24 04/06/18 04:47 Zofran IV 05/05/18 21:23 4 mg Q8H PRN Administration Nausea Oxycodone/Acetaminophen 1 tab 04/05/18 21:24 04/06/18 08:59 Percocet 5mg/325mg PO 04/19/18 21:23 1 tab Q4H PRN Administration Pain Tamsulosin HCl 0.4 mg 04/05/18 21:24 04/05/18 22:53 Flomax PO 05/05/18 21:23 0.4 mg HS ALEX Administration Past Medical History Medical History Abnormal uterine bleeding (Chronic) 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), 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 Recurrent kidney stones (Chronic) Morbid obesity Past Family History Family History Other No pertinent family history Past Surgical History Surgical History S/P tonsillectomy and adenoidectomy (Resolved) Status post third molar tooth extraction (Resolved) Social History Smoking Status: Never smoker Do You Dip or Chew Tobacco: No Hx Alcohol Use: No Hx Substance Use: No Physical Exam Vital Signs Last Vital Signs Temp 37.3 C 04/06/18 08:10 Pulse 93 H 04/06/18 08:10 Resp 19 04/06/18 08:10 BP 107/73 04/06/18 08:10 Pulse Ox 98 04/06/18 08:10 Testing Laboratory Results 04/06/18 06:37 04/06/18 06:37 Urine Color Yellow 04/05/18 19:07 Urine Appearance Cloudy (Clear) H 04/05/18 19:07 Urine pH 5.0 (4.5-7.5) 04/05/18 19:07 Ur Specific [place] 1.017 (1.000-1.030) 04/05/18 19:07 Urine Protein Negative (Negative) 04/05/18 19:07 Urine Glucose (UA) Negative (Negative) 04/05/18 19:07 Urine Ketones Negative (Negative) 04/05/18 19: Urine Nitrite Negative (Negative) 04/05/18 19:07 Ur Leukocyte Esterase 3+ (Negative) H 04/05/18 19:07 Urine WBC (Auto) >30 /hpf (0-5) H 04/05/18 19:07 Urine RBC (Auto) 0-4 /hpf (0-4) 04/05/18 19:07 U Hyaline Cast (Auto) 0 /lpf (0-5) 04/05/18 19:07 U Epithel Cells (Auto) >30 /lpf (0-5) H 04/05/18 19:07 Urine Bacteria (Auto) 4+ (Negative) H 04/05/18 19:07
[2018-04-06] MEDS ORDERED: LIDOCAINE HCL 2% 2 ML VIAL/AMP(20MG/ML) INFIL ONE (09:39)
[2018-04-06] MEDS ORDERED: DEXAMETHASONE SOD INJ 4 MG/ML VIAL ONE (09:39)
[2018-04-06] MEDS ORDERED: GLYCOPYRROLATE 0.2 MG/ML VIAL ONE (09:39)
[2018-04-06] MEDS ORDERED: NEOSTIGMINE METHYLSULFATE 5 MG/5 ML SYR ONE (09:39)
[2018-04-06] MEDS ORDERED: PROPOFOL IV EMULSION 10 MG/ML 20 ML VIAL IV ONE (09:39)
[2018-04-06] MEDS ORDERED: ONDANSETRON INJ 2 MG/ML 2 ML VIAL ONE (09:39)
[2018-04-06] MEDS ORDERED: fentaNYL citrate 100 MCG/2 ML VIAL ONE (09:40)
[2018-04-06] MEDS ORDERED: MIDAZOLAM HCL 1 MG/ML 2ML VIAL ONE (09:40)
[2018-04-06] MEDS ORDERED: IOTHALAMATE MEGLUMINE II 17.2% 250 ML VIAL ONE (10:41)
[2018-04-06] MEDS ORDERED: HYDROCORTISONE SOD SUCCINATE 100 MG/2 ML VIAL ONE (11:18)
--- NOTE | 2018-04-06 11:19 | Emergency Department Note ---
Entered by Petar Robles acting as a scribe for History of Present Illness General Chief complaint: Kidney Stone Stated complaint: KIDNEY STONE Time Seen by Provider: 04/05/18 15:03 Source: patient History of Present Illness Provider complaint: kidney stone Onset (ago): hour(s) (last night) Location: abdomen (mostly right flank) Radiation: back Pain Consistency: + constant Maximum Pain Intensity: 8 Quality: + other (kidney stone) Associated symptoms: + nausea/vomiting The patient is a 23 year old female who presents to the Emergency Room with complaints of a kidney stone since last night. The patient reports pain in her right flank and she rates this pain as an 8/10. The patient reports she has a history of kidney stones stating she has had 11 stones in the past. The patient added that she has been able to pass some of her past kidney stones with no pain. The patient also notes nausea stating she has not been able to keep any food down. The patient also reported she tried taking Zofran and oxycodone prior to arrival but vomited up both of them. The patient states she feels extremely tired. The patient noted that she has a history of adrenal hyperplasia. CT and labs from last night reviewed in EMR. Patient found to have a 4 mm proximal ureteral stone on the right on CT imaging. UA however suspicious for infection. Home Medications Home Medications Medication Instructions Recorded Confirmed Type hydrocortisone 5 mg PO QPM 04/05/18 04/05/18 History hydrocortisone 10 mg PO BID 04/05/18 04/05/18 History ondansetron 4 mg PO Q6H PRN #12 tab 04/05/18 04/05/18 Rx oxycodone 5 - 10 mg PO Q6H PRN 04/05/18 04/05/18 History tamsulosin [Flomax] 0.4 mg PO DAILY #7 cap 04/05/18 04/05/18 Rx Allergies Allergy/AdvReac Type Severity Reaction Status Date / Time cefpodoxime Allergy Severe HIVES Unverified 04/05/18 16:27 amoxicillin AdvReac Intermediate PASS OUT, Unverified 04/05/18 16:27 LOW BLOOD PRESSURE Past Med/Surg History Medical History Abnormal uterine bleeding (Chronic) 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), 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 Recurrent kidney stones (Chronic) Morbid obesity Surgical History S/P tonsillectomy and adenoidectomy (Resolved) Status post third molar tooth extraction (Resolved) Family History Other No pertinent family history Social History Current Living Situation: Significant Other Other Information That Helps Us Care for You: No Feels Safe at Home: Yes Safety Concerns: Feels Safe At This Time Smoking Status: Never smoker Do You Dip or Chew Tobacco: No Hx Alcohol Use: No Hx Substance Use: No Beliefs That Will Affect Care: None Preferred Language: Argentine Communication Ability: Effective Print Shop Assistant Required: No Review of Systems See HPI for pertinent positives & negatives. and A total of 10 systems reviewed and were otherwise negative Physical Exam Vital Signs Vital Signs - 24 hr 04/05/18 15:09 04/05/18 15:44 04/05/18 16:01 Temperature 37.2 C Temperature Source Oral Sepsis Recent Fever Within 48 Hours No Sepsis New/Unexplained Change in Mental Status No Sepsis Action Taken by Nursing No Action Required Pulse Rate 136 H Pulse Rate [Apical] 107 H 103 H Pulse Rate [Right Finger] Pulse Rhythm [Apical] Pulse Rhythm [Right Finger] Pulse Strength [Right Finger] Respiratory Rate 20 23 19 Respiratory Effort / Characteristics Non-Labored Spontaneous Non-Labored Respiratory Depth Normal Normal Respiratory Pattern Regular Blood Pressure 113/67 Blood Pressure [Right Arm] 116/90 112/71 Blood Pressure Mean 82 Blood Pressure Mean [Right Arm] 98 84 Blood Pressure Position [Right Arm] Pulse Oximetry 97 95 100 Oxygen Delivery Method Room Air Room Air Room Air 04/05/18 16:30 04/05/18 17:00 04/05/18 17:01 Temperature Temperature Source Sepsis Recent Fever Within 48 Hours Sepsis New/Unexplained Change in Mental Status Sepsis Action Taken by Nursing Pulse Rate 109 H 95 H 101 H Pulse Rate [Apical] Pulse Rate [Right Finger] Pulse Rhythm [Apical] Pulse Rhythm [Right Finger] Pulse Strength [Right Finger] Respiratory Rate 37 H 39 H 40 H Respiratory Effort / Characteristics Respiratory Depth Respiratory Pattern Blood Pressure 115/72 118/67 Blood Pressure [Right Arm] Blood Pressure Mean 86 84 Blood Pressure Mean [Right Arm] Blood Pressure Position [Right Arm] Pulse Oximetry 100 99 100 Oxygen Delivery Method 04/05/18 17:31 04/05/18 18:00 04/05/18 18:01 Temperature Temperature Source Sepsis Recent Fever Within 48 Hours Sepsis New/Unexplained Change in Mental Status Sepsis Action Taken by Nursing Pulse Rate 102 H 103 H 113 H Pulse Rate [Apical] Pulse Rate [Right Finger] Pulse Rhythm [Apical] Pulse Rhythm [Right Finger] Pulse Strength [Right Finger] Respiratory Rate 35 H 25 H 24 Respiratory Effort / Characteristics Respiratory Depth Respiratory Pattern Blood Pressure 118/65 110/64 Blood Pressure [Right Arm] Blood Pressure Mean 82 79 Blood Pressure Mean [Right Arm] Blood Pressure Position [Right Arm] Pulse Oximetry 97 96 Oxygen Delivery Method Room Air Room Air 04/05/18 19:01 04/05/18 19:32 04/05/18 20:15 Temperature Temperature Source Sepsis Recent Fever Within 48 Hours Sepsis New/Unexplained Change in Mental Status Sepsis Action Taken by Nursing Pulse Rate Pulse Rate [Apical] 105 H 105 H 99 H Pulse Rate [Right Finger] Pulse Rhythm [Apical] Regular Pulse Rhythm [Right Finger] Pulse Strength [Right Finger] Respiratory Rate 14 22 19 Respiratory Effort / Characteristics Respiratory Depth Respiratory Pattern Blood Pressure Blood Pressure [Right Arm] 113/64 109/57 L 100/64 Blood Pressure Mean Blood Pressure Mean [Right Arm] 80 74 76 Blood Pressure Position [Right Arm] Pulse Oximetry 98 100 100 Oxygen Delivery Method Room Air Room Air Room Air 04/05/18 20:30 04/05/18 21:00 04/06/18 00:01 Temperature 37.7 C H 39.4 C H Temperature Source Oral Oral Sepsis Recent Fever Within 48 Hours Sepsis New/Unexplained Change in Mental Status Sepsis Action Taken by Nursing Pulse Rate Pulse Rate [Apical] 100 H 106 H 117 H Pulse Rate [Right Finger] Pulse Rhythm [Apical] Pulse Rhythm [Right Finger] Pulse Strength [Right Finger] Respiratory Rate 22 20 18 Respiratory Effort / Characteristics Non-Labored Spontaneous Respiratory Depth Normal Respiratory Pattern Regular Blood Pressure Blood Pressure [Right Arm] 112/67 114/61 124/66 Blood Pressure Mean Blood Pressure Mean [Right Arm] 82 78 85 Blood Pressure Position [Right Arm] Lying Lying Pulse Oximetry 99 100 98 Oxygen Delivery Method Room Air Room Air Room Air 04/06/18 01:19 04/06/18 04:44 04/06/18 08:10 Temperature 37.2 C 36.7 C 37.3 C Temperature Source Oral Oral Oral Sepsis Recent Fever Within 48 Hours Sepsis New/Unexplained Change in Mental Status Sepsis Action Taken by Nursing Pulse Rate Pulse Rate [Apical] 100 H Pulse Rate [Right Finger] 93 H Pulse Rhythm [Apical] Pulse Rhythm [Right Finger] Pulse Strength [Right Finger] Respiratory Rate 18 19 Respiratory Effort / Characteristics Respiratory Depth Respiratory Pattern Blood Pressure Blood Pressure [Right Arm] 108/57 L 107/73 Blood Pressure Mean Blood Pressure Mean [Right Arm] 74 84 Blood Pressure Position [Right Arm] Lying Pulse Oximetry 98 98 Oxygen Delivery Method Room Air Room Air 04/06/18 09:24 Temperature 37 C Temperature Source Oral Sepsis Recent Fever Within 48 Hours Sepsis New/Unexplained Change in Mental Status Sepsis Action Taken by Nursing Pulse Rate Pulse Rate [Apical] Pulse Rate [Right Finger] 20 L Pulse Rhythm [Apical] Pulse Rhythm [Right Finger] Regular Pulse Strength [Right Finger] Normal Respiratory Rate 20 Respiratory Effort / Characteristics Non-Labored Spontaneous Respiratory Depth Normal Respiratory Pattern Blood Pressure Blood Pressure [Right Arm] 111/71 Blood Pressure Mean Blood Pressure Mean [Right Arm] 84 Blood Pressure Position [Right Arm] Sitting Pulse Oximetry 20 L Oxygen Delivery Method Room Air GENERAL: alert, uncomfortable appearing, well nourished, no distress, non- toxic. Obese EYE EXAM: normal conjunctiva, PERRL and EOM's grossly intact OROPHARYNX: no exudate, no erythema, lips, buccal mucosa, and tongue normal and mucous membranes are moist NECK: supple, no nuchal rigidity, no adenopathy, non-tender LUNGS: Clear to auscultation. Normal chest wall mechanics, no w/r/r HEART: no murmurs, S1 normal and S2 normal ABDOMEN: abdomen soft, normo-active bowel sounds, no masses, no rebound or guarding. Right flank tenderness. BACK: Back is symmetrical on inspection and there is no deformity, no midline tenderness, no CVA tenderness. Some right low back tenderness to palpation. SKIN: no rashes and no bruising UPPER EXTREMITIES: upper extremities are grossly normal. FROM, nml pulses b/l. LOWER EXTREMITIES: No pitting edema. FROM, nml pulses b/l. NEURO EXAM: Normal sensorium, cranial nerves II-XII grossly intact, normal speech, no gross weakness of arms, no gross weakness of legs. Course 1535: Past medical records reviewed. The patient was evaluated in room B8, and a complete history and physical examination were performed. 1707: I discussed the patient's case with Dr. Tello-Urology who said that he is okay with the plan either way and if the patient is discharged[facility]58: I rechecked the patient. She complains of feeling hot. I checked her temperature and it was 37.2. Concern the patient could have evolving fever. 1830: I discussed the patient's case with Damari Sultana who will evaluate the patient for further management. Consultations Consultation #1: Dr. Kiser Time: 17:07 Consultation #2: Damari Sultana Time: 18:30 Administered Medications Acetaminophen (Tylenol) 650 mg PO Q4H PRN PRN Reason: Pain or Fever Stop: 05/05/18 21:23 Last Admin: 04/05/18 23:46 Dose: 650 mg Hydromorphone HCl (Dilaudid) 0.5 mg IV Q1H PRN PRN Reason: Severe Pain Stop: 04/19/18 21:23 Last Admin: 04/05/18 22:50 Dose: 0.5 mg Levofloxacin/Dextrose (Levaquin/D5w) 750 mg in 150 mls @ 100 mls/hr IV Q24H ALEX Stop: 04/15/18 21:59 Last Infusion: 04/06/18 01:03 Dose: 0 mls/hr Admin: 04/05/18 22:53 Dose: 100 mls/hr Sodium Chloride (Nss 1000ml) 1,000 mls @ 150 mls/hr IV .Q6H40M ALEX Stop: 05/05/18 21:23 Last Admin: 04/06/18 05:50 Dose: 150 mls/hr Infusion: 04/06/18 05:34 Dose: 150 mls/hr Admin: 04/05/18 22:53 Dose: 150 mls/hr Hydrocortisone Sodium (Succinate 50 mg/ Syringe) 1 mls @ 4 mls/min IV Q6 ALEX Stop: 05/06/18 00:00 Last Admin: 04/06/18 05:49 Dose: 4 mls/min Admin: 04/05/18 23:45 Dose: 4 mls/min Ondansetron HCl (Zofran) 4 mg IV Q8H PRN PRN Reason: Nausea Stop: 05/05/18 21:23 Last Admin: 04/06/18 04:47 Dose: 4 mg Oxycodone/Acetaminophen (Percocet 5mg/325mg) 1 tab PO Q4H PRN PRN Reason: Pain Stop: 04/19/18 21:23 Last Admin: 04/06/18 08:59 Dose: 1 tab Tamsulosin HCl (Flomax) 0.4 mg PO HS ALEX Stop: 05/05/18 21:23 Last Admin: 04/05/18 22:53 Dose: 0.4 mg Discontinued Medications Hydrocortisone Sodium Succinate (Solu-Cortef) Confirm Administered Dose 100 mg .ROUTE .STK-MED ONE Stop: 04/05/18 16:39 Last Admin: 04/05/18 16:41 Dose: Not Given Hydromorphone HCl (Dilaudid) 0.5 mg IV Q15M PRN PRN Reason: Pain Stop: 04/19/18 15:46 Last Admin: 04/05/18 15:59 Dose: 0.5 mg Sodium Chloride (Nss 1000ml) 1,000 mls @ 999 mls/hr IV .Q1H1M ONE Stop: 04/05/18 16:03 Last Infusion: 04/05/18 19:59 Dose: 0 mls/hr Admin: 04/05/18 15:40 Dose: 999 mls/hr Piperacillin Sod/Tazobactam Sod (Zosyn) 4.5 gm in 120 mls @ 240 mls/hr IV NOW ONE Stop: 04/05/18 16:39 Last Infusion: 04/05/18 17:11 Dose: 0 mls/hr Admin: 04/05/18 16:41 Dose: 240 mls/hr Hydrocortisone Sodium (Succinate 25 mg/ Syringe) 0.5 mls @ 4 mls/min IV NOW ONE Stop: 04/05/18 16:31 Last Admin: 04/05/18 16:41 Dose: 4 mls/min Sodium Chloride (Nss 1000ml) 1,000 mls @ 999 mls/hr IV .Q1H1M ONE Stop: 04/05/18 19:38 Last Infusion: 04/05/18 21:00 Dose: 0 mls/hr Admin: 04/05/18 19:58 Dose: 999 mls/hr Ketorolac Tromethamine (Toradol) 15 mg IV NOW STA Stop: 04/05/18 17:11 Last Admin: 04/05/18 17:14 Dose: 15 mg Medical Decision Making Differential Diagnosis Differential diagnosis: Etiologies such as shingles, pyelonephritis/UTI, renal colic, appendicitis, diverticulitis, mesenteric ischemia, torsion, aortic pathology, infections, inflammatory bowel disease, bowel obstruction, PUD, biliary pathology, as well as others were entertained. Medical Records Attestation: I reviewed the patient's medical records. Home Medications Current Medication List: was personally reviewed by me Laboratory Data Attestation: I reviewed the patient's lab results. Result diagrams: 04/06/18 06:37 04/06/18 06:37 Lab Results 04/05/18 04/05/18 04/05/18 Range/Units 15:23 15:23 15:29 WBC 13.23 H (4.8-10.8) K/uL RBC 4.63 (4.2-5.4) M/uL Hgb 13.8 (12.0-16.0) g/dL Hct 39.8 (37-47) % MCV 86.0 (80-100) fL MCH 29.8 (25-34) pg MCHC 34.7 (32-36) g/dL RDW Std Deviation 40.3 (36.4-46.3) fL RDW Coeff of [place] 12.7 (11.5-14.5) % Plt Count 282 (130-400) K/uL MPV 10.4 (7.4-10.4) fL Immature Gran % (Auto) 0.4 % Neut % (Auto) 82.0 % Lymph % (Auto) 9.7 % [place] % (Auto) 7.2 % Eos % (Auto) 0.5 % Baso % (Auto) 0.2 % Immature Gran # (Auto) 0.05 H (0.00-0.02) K/uL Neut # (Auto) 10.87 H (1.4-6.5) K/uL Lymph # (Auto) 1.28 (1.2-3.4) K/uL [place] # (Auto) 0.95 H (0.11-0.59) K/uL Eos # (Auto) 0.06 (0-0.5) K/uL Baso # (Auto) 0.02 (0-0.2) K/uL Sodium 136 (136-145) mmol/L Potassium 3.5 (3.5-5.1) mmol/L Chloride 107 (98-107) mmol/L Carbon Dioxide 23 (21-32) mmol/L Anion Gap 6.0 (3-11) BUN 16 (7-18) mg/dl Creatinine 1.02 (0.6-1.2) mg/dl Est Cr Clr Drug Dosing 83.3 ml/min Est GFR ( Amer) 88.5 Est GFR (Non-Af Amer) 76.4 BUN/Creatinine Ratio 15.9 (10-20) Glucose 101 H (70-99) mg/dl POC Lactic Acid Vic 1.94 H (0.90-1.70) mmol/L Calcium 8.4 L (8.5-10.1) mg/dl Total Bilirubin 1.6 H D (0.2-1) mg/dl AST 17 (15-37) U/L ALT 29 (12-78) U/L Alkaline Phosphatase 54 (45-117) U/L Total Protein 6.9 (6.4-8.2) gm/dl Albumin 3.5 (3.4-5.0) gm/dl Globulin 3.4 (2.5-4.0) gm/dl Albumin/Globulin Ratio 1.0 (0.9-2) Urine Color Urine Appearance (Clear) Urine pH (4.5-7.5) Ur Specific [place] (1.000-1.030) Urine Protein (Negative) Urine Glucose (UA) (Negative) Urine Ketones (Negative) Urine Blood (Negative) Urine Nitrite (Negative) Urine Bilirubin (Negative) Urine Urobilinogen (Negative) Ur Leukocyte Esterase (Negative) Urine WBC (Auto) (0-5) /hpf Urine RBC (Auto) (0-4) /hpf U Hyaline Cast (Auto) (0-5) /lpf U Epithel Cells (Auto) (0-5) /lpf Urine Bacteria (Auto) (Negative) 01/27/19 01/28/19 01/28/19 Range/Units 19:07 06:37 06:37 WBC 9.41 (4.8-10.8) K/uL RBC 4.25 (4.2-5.4) M/uL Hgb 12.3 (12.0-16.0) g/dL Hct 36.3 L (37-47) % MCV 85.4 (80-100) fL MCH 28.9 (25-34) pg MCHC 33.9 (32-36) g/dL RDW Std Deviation 40.3 (36.4-46.3) fL RDW Coeff of [place]les[place] 12.9 (11.5-14.5) % Plt Count 231 (130-400) K/uL MPV 10.2 (7.4-10.4) fL Immature Gran % (Auto) 0.4 % Neut % (Auto) 83.9 % Lymph % (Auto) 8.7 % [place] % (Auto) 6.8 % Eos % (Auto) 0.0 % Baso % (Auto) 0.2 % Immature Gran # (Auto) 0.04 H (0.00-0.02) K/uL Neut # (Auto) 7.89 H (1.4-6.5) K/uL Lymph # (Auto) 0.82 L (1.2-3.4) K/uL [place] # (Auto) 0.64 H (0.11-0.59) K/uL Eos # (Auto) 0.00 (0-0.5) K/uL Baso # (Auto) 0.02 (0-0.2) K/uL Sodium 138 (136-145) mmol/L Potassium 3.5 (3.5-5.1) mmol/L Chloride 109 H (98-107) mmol/L Carbon Dioxide 21 (21-32) mmol/L Anion Gap 8.0 (3-11) BUN 10 D (7-18) mg/dl Creatinine 0.84 (0.6-1.2) mg/dl Est Cr Clr Drug Dosing 102.0 ml/min Est GFR ( Amer) 112.0 Est GFR (Non-Af Amer) 96.6 BUN/Creatinine Ratio 12.3 (10-20) Glucose 101 H (70-99) mg/dl POC Lactic Acid Vic (0.90-1.70) mmol/L Calcium 7.6 L (8.5-10.1) mg/dl Total Bilirubin (0.2-1) mg/dl AST (15-37) U/L ALT (12-78) U/L Alkaline Phosphatase (45-117) U/L Total Protein (6.4-8.2) gm/dl Albumin (3.4-5.0) gm/dl Globulin (2.5-4.0) gm/dl Albumin/Globulin Ratio (0.9-2) Urine Color Yellow Urine Appearance Cloudy H (Clear) Urine pH 5.0 (4.5-7.5) Ur Specific [place] 1.017 (1.000-1.030) Urine Protein Negative (Negative) Urine Glucose (UA) Negative (Negative) Urine Ketones Negative (Negative) Urine Blood 2+ H (Negative) Urine Nitrite Negative (Negative) Urine Bilirubin Negative (Negative) Urine Urobilinogen Negative (Negative) Ur Leukocyte Esterase 3+ H (Negative) Urine WBC (Auto) >30 H (0-5) /hpf Urine RBC (Auto) 0-4 (0-4) /hpf U Hyaline Cast (Auto) 0 (0-5) /lpf U Epithel Cells (Auto) >30 H (0-5) /lpf Urine Bacteria (Auto) 4+ H (Negative) Blood Pressure Blood Pressure Findings: Normal blood pressure MDM Narrative Patient mildly ill-appearing here in failure of outpatient treatment with Percocet, Flomax, and Zofran at home. Patient with multiple prior kidney stones and proximal 4 mm stone found last night. Patient returns again today due to worsening symptoms. Concern upon review of testing done last night for possible evolving UTI as well. I was unable to view the note from last night to know if this was otherwise discussed or had been a prior finding for her current symptoms. Given my concern for possible complicated UTI or infected stone, patient started on IV antibiotics after discussion with pharmacy and confirmation of her allergies. Patient's urine culture from last night is still pending. Patient's leukocytosis slightly elevated compared to last night , unclear if this is related to evolving infection, pain, or vomiting. Patient' s symptoms are markedly improved with IV pain medication and Zofran. Patient was given 1 L of IV fluids over still had some persistent tachycardia so second liter was hung. Patient felt subjective fevers and chills while in the emergency room, however did not have a true documented fever. Patient was otherwise hemodynamically stable. Case discussed with urology who felt patient was afebrile and symptoms can be controlled she could be discharged with close outpatient follow-up on Cipro twice daily. Given my concern for possible infected stone/complicated UTI, difficulty controlling her symptoms at home on oral medications, I discussed the case with the hospitalist for additional evaluation and management. Patient was aware of all results in agreement with plan. No evidence of bacteremia/sepsis. Patient symptoms improved with treatment in the emergency room. Impression & Plan Renal colic, Intractable pain, UTI (urinary tract infection), Nausea & vomiting Discharge Plan Visit Data *Final* Discharge Date/Time: 04/05/18 21:01 Chief Complaint: Kidney Stone Stated Complaint: KIDNEY STONE ED Provider: Riddhi Perez Discharge Problem: Renal colic, Intractable pain, UTI (urinary tract infection), Nausea & vomiting Patient Disposition: Admitted As Inpatient Discharge Instructions Interventions: ED Discharge Assessment Last Done: 04/05/18 21:01 The scribe's documentation has been prepared under my direction and personally reviewed by me in its entirety. I confirm that the note above accurately reflects all work, treatment, procedures, and medical decision making performed by me.
--- NOTE | 2018-04-06 11:20 | Operative Report ---
Post Operative Report Pre & Post Diagnosis Operation Date: 04/06/18 12:45 <No data on this case meets the specified criteria> PRe: stone; UTI Post: stone; UTI Procedure Operation Date: 04/06/18 12:45 <No data on this case meets the specified criteria> Procedure: cystoscopy, right ureteral stent placement Surgeon Manny Canales MD Kidney Puller none Estimated Blood Loss 0 Findings Consistent with Post-Op Diagnosis Specimens none Description of Procedure Patient was identified in the preoperative holding area, appropriate informed consents were reviewed and completed and the patient was transported to the operating suite. She received Levaquin on the floor immediately prior to arrival in the operative suite. General anesthesia was achieved, she was placed in dorsal lithotomy position where she was sterilely prepped and draped in standard fashion. To begin the case I passed a 22 [place] cystoscope with 30 degree lens. Inspection of the bladder revealed healthy appearing bladder mucosa. The right ureteral orifice was subsequently intubated with a sensor wire which was advanced the kidney without difficulty. I had a return of milky appearing urine. I then placed a 6 [place] by 24 cm double-J ureteral stent over the wire. I saw good curl in the kidney as well as the bladder. I decompressed the bladder and concluded the case. The patient was extubated and taken to the PACU in stable condition. I attest to the content of the Intraoperative Record and any orders documented therein. Any exceptions are noted below.
--- NOTE | 2018-04-06 11:33 | Fluoroscopy Report ---
FL KUB CLINICAL HISTORY: STENT EXCHANGE COMPARISON STUDY: None FLUOROSCOPY TIME: 8 seconds NUMBER OF FLUOROSCOPIC IMAGES: 2 FINDINGS: 2 images of the right ureter demonstrate a successful stent exchange. IMPRESSION: Stent exchange right ureter The above report was generated using voice recognition software. It may contain grammatical, syntax or spelling errors. Electronically signed by: Elfego Chen M.D. 04/06/2018 11:32 AM
--- NOTE | 2018-04-06 12:44 | Anesthesiology Progress Note ---
Date of Service April 06, 2018 Anesthesia Post Procedure Vital Signs Vital Signs: Temp Pulse Pulse Pulse Resp BP BP 04/06/18 12:21 88 25 H 99/60 L 04/06/18 12:20 81 28 H 04/06/18 12:16 82 27 H 120/72 04/06/18 12:15 83 19 04/06/18 12:11 82 28 H 123/68 04/06/18 12:10 85 31 H 04/06/18 12:06 85 28 H 113/64 04/06/18 12:05 75 20 04/06/18 12:01 81 23 111/66 04/06/18 12:00 82 22 04/06/18 11:56 83 29 H 120/68 04/06/18 11:55 83 24 04/06/18 11:51 83 15 123/70 04/06/18 11:50 82 31 H 04/06/18 11:46 84 30 H 121/62 04/06/18 11:45 87 27 H 04/06/18 11:41 86 30 H 116/66 04/06/18 11:40 91 H 23 04/06/18 11:36 96 H 23 102/49 L 04/06/18 11:35 36.7 C 98 H 21 102/49 L 04/06/18 09:24 37 C 20 L 20 111/71 04/06/18 09:05 111 H 04/06/18 09:00 118 H 04/06/18 08:55 107 H 04/06/18 08:50 104 H 04/06/18 08:45 135 H 04/06/18 08:40 92 H 04/06/18 08:35 100 H 04/06/18 08:30 94 H 04/06/18 08:25 99 H 04/06/18 08:20 89 04/06/18 08:15 97 H 04/06/18 08:10 37.3 C 96 H 93 H 19 107/73 04/06/18 08:05 101 H 04/06/18 08:00 85 04/06/18 07:55 85 04/06/18 07:50 87 04/06/18 07:45 84 04/06/18 07:40 86 04/06/18 07:35 89 04/06/18 07:30 88 04/06/18 07:25 86 04/06/18 07:20 85 04/06/18 07:15 90 04/06/18 07:10 89 04/06/18 07:05 92 H 04/06/18 07:00 93 H 04/06/18 06:55 95 H 04/06/18 06:50 96 H 04/06/18 06:45 94 H 04/06/18 06:40 96 H 04/06/18 06:35 96 H 04/06/18 06:30 92 H 04/06/18 06:25 94 H 04/06/18 06:20 99 H 04/06/18 06:15 98 H 04/06/18 06:10 96 H 04/06/18 06:05 94 H 04/06/18 06:00 96 H 04/06/18 05:55 96 H 04/06/18 05:50 99 H 04/06/18 05:45 90 04/06/18 05:40 92 H 04/06/18 04:44 36.7 C 100 H 18 108/57 L 04/06/18 01:19 37.2 C 04/06/18 00:01 39.4 C H 117 H 18 124/66 04/05/18 21:00 37.7 C H 106 H 20 114/61 04/05/18 20:30 100 H 22 112/67 04/05/18 20:15 99 H 19 100/64 04/05/18 19:32 105 H 22 109/57 L 04/05/18 19:01 105 H 14 113/64 04/05/18 18:01 113 H 24 110/64 04/05/18 18:00 103 H 25 H 04/05/18 17:31 102 H 35 H 118/65 04/05/18 17:01 101 H 40 H 118/67 04/05/18 17:00 95 H 39 H 04/05/18 16:30 109 H 37 H 115/72 04/05/18 16:01 103 H 19 112/71 04/05/18 15:44 107 H 23 116/90 04/05/18 15:09 37.2 C 136 H 20 113/67 Pulse Ox 04/06/18 12:21 99 04/06/18 12:20 98 04/06/18 12:16 99 04/06/18 12:15 99 04/06/18 12:11 99 04/06/18 12:10 99 04/06/18 12:06 99 04/06/18 12:05 99 04/06/18 12:01 99 04/06/18 12:00 100 04/06/18 11:56 98 04/06/18 11:55 99 04/06/18 11:51 97 04/06/18 11:50 99 04/06/18 11:46 98 04/06/18 11:45 96 04/06/18 11:41 95 04/06/18 11:40 94 04/06/18 11:36 94 04/06/18 11:35 90 04/06/18 09:24 20 L 04/06/18 09:05 04/06/18 09:00 04/06/18 08:55 04/06/18 08:50 04/06/18 08:45 04/06/18 08:40 04/06/18 08:35 04/06/18 08:30 04/06/18 08:25 04/06/18 08:20 04/06/18 08:15 04/06/18 08:10 98 04/06/18 08:05 04/06/18 08:00 04/06/18 07:55 04/06/18 07:50 04/06/18 07:45 04/06/18 07:40 04/06/18 07:35 04/06/18 07:30 04/06/18 07:25 04/06/18 07:20 04/06/18 07:15 04/06/18 07:10 04/06/18 07:05 04/06/18 07:00 04/06/18 06:55 04/06/18 06:50 04/06/18 06:45 04/06/18 06:40 04/06/18 06:35 04/06/18 06:30 04/06/18 06:25 04/06/18 06:20 04/06/18 06:15 04/06/18 06:10 04/06/18 06:05 04/06/18 06:00 04/06/18 05:55 04/06/18 05:50 04/06/18 05:45 04/06/18 05:40 04/06/18 04:44 98 04/06/18 01:19 04/06/18 00:01 98 04/05/18 21:00 100 04/05/18 20:30 99 04/05/18 20:15 100 04/05/18 19:32 100 04/05/18 19:01 98 04/05/18 18:01 04/05/18 18:00 96 04/05/18 17:31 97 04/05/18 17:01 100 04/05/18 17:00 99 04/05/18 16:30 100 04/05/18 16:01 100 04/05/18 15:44 95 04/05/18 15:09 97 Pain Intensity Right Flank: Pain Intensity: 4 Notes Mental Status: alert / awake / arousable Patient Amnestic to Procedure: Yes Nausea / Vomiting: adequately controlled Pain: adequately controlled Airway Patency, RR, SpO2: stable & adequate BP & HR: stable & adequate Hydration State: stable & adequate Anesthetic Complications: no major complications apparent
[2018-04-06] MEDS ORDERED: OXYCODONE HCL IR 5 MG TAB (IMMEDIATE RELEASE) PO PRN (17:16)
--- NOTE | 2018-04-06 18:04 | Hospitalist Progress Note ---
Date of Service April 06, 2018 Assessment & Plan (1) Recurrent kidney stones: Presented with renal colic, CT abdomen pelvis: IMPRESSION: 1. Obstructing 4 mm proximal right ureteral calculus with resultant mild right hydronephrosis. 2. Bilateral nonobstructing largely punctate renal calculi. 3. Thin mural calcification in the ovaries. This is of uncertain significance. A nonurgent pelvic ultrasound could be considered on an outpatient basis though the most recent pelvic ultrasound from October was normal, when this finding was also present on the concurrent CT. Urology was consulted Status post ureteric stent placement (2) Complicated UTI (urinary tract infection): UTI in the setting of renal stone Urine culture gram-negative bacilli She is continued with ciprofloxacin, pending sensitivity (3) Adrenal insufficiency: History of congenital adrenal hyperplasia, on Cortef 25 mg p.o. daily. Was ordered IV stress dose of hydrocortisone, patient was unable to take p.o. IV hydrocortisone discontinued Patient is resumed her p.o. Cortef dose (4) DVT prophylaxis: SCDs, ambulation Full code Disposition: Possible discharge home tomorrow morning, Subjective This post ureteric stent placement, Feels much better, Minimum flank pain No fever or chills, Tolerating diet Physical Exam 2 Vital Signs (Past 24 Hours): Last Vital Signs Temp 37.2 C 04/06/18 17:11 Pulse 88 04/06/18 17:11 Resp 18 04/06/18 17:11 BP 116/70 04/06/18 17:11 Pulse Ox 97 04/06/18 17:11 Physical Exam: GENERAL: No sign of distress, HEENT: Sclera nonicteric, pink-purple bilateral equal reactive to light extraocular muscle intact Normal oral mucosa, neck: No JVD, no thyromegaly, trachea midline Lungs: Clear to auscultate, no wheeze or rales Cardiovascular: Regular S1 and S2, no murmur or gallop, no JVD, no lower extremity edema Abdomen: Soft, nontender, bowel sounds active, MINIMUM RIGHT-SIDED FLANK PAIN Extremities: No rash or deformity, normal joint, Neuro: No focal neurological deficit, no dysarthria, no facial droop Psych: Alert awake oriented x3: Euthymic Skin: No rash LYMPH NODES: No cervical lymphadenopathy
[2018-04-06] MEDS ORDERED: HYDROCORTISONE 10 MG TAB PO SCH (21:00)
[2018-04-06] MEDS: CIPROFLOXACIN 500 MG TAB PO SCH (21:36)
[2018-04-06] MEDS: TAMSULOSIN HCL 0.4 MG CAP PO SCH (21:36)
[2018-04-06] MEDS: PHENAZOPYRIDINE HCL 200 MG TAB PO SCH (21:36)
[2018-04-06] MEDS ORDERED: HYDROCORTISONE SOD 50 MG in SYRINGE 0 ML IV SCH (22:00)
[2018-04-06] MEDS: ACETAMINOPHEN 325 MG TAB PO PRN (23:24)
[2018-04-07] MEDS: SODIUM CHLORIDE 0.9% 1000ML 1,000 ML IV SCH (03:08)
[2018-04-07] MEDS: ACETAMINOPHEN 325 MG TAB PO PRN (07:01)
--- NOTE | 2018-04-07 07:54 | Anesthesiology Progress Note ---
Date of Service April 07, 2018 Anesthesia Post Procedure Vital Signs Vital Signs: Temp Pulse Pulse Pulse Resp BP BP 04/07/18 07:39 37.1 C 90 16 123/77 04/07/18 03:46 36.9 C 91 H 18 116/74 04/07/18 00:30 37.8 C H 04/06/18 23:19 38.8 C H 99 H 18 121/74 04/06/18 20:00 37.5 C 82 18 123/71 04/06/18 17:11 37.2 C 88 18 116/70 04/06/18 16:00 92 H 04/06/18 15:50 37.3 C 97 H 22 118/67 04/06/18 12:21 88 25 H 99/60 L 04/06/18 12:20 81 28 H 04/06/18 12:16 82 27 H 120/72 04/06/18 12:15 83 19 04/06/18 12:11 82 28 H 123/68 04/06/18 12:10 85 31 H 04/06/18 12:06 85 28 H 113/64 04/06/18 12:05 75 20 04/06/18 12:01 81 23 111/66 04/06/18 12:00 82 22 04/06/18 11:56 83 29 H 120/68 04/06/18 11:55 83 24 04/06/18 11:51 83 15 123/70 04/06/18 11:50 82 31 H 04/06/18 11:46 84 30 H 121/62 04/06/18 11:45 87 27 H 04/06/18 11:41 86 30 H 116/66 04/06/18 11:40 91 H 23 04/06/18 11:36 96 H 23 102/49 L 04/06/18 11:35 36.7 C 98 H 21 102/49 L 04/06/18 09:24 37 C 20 L 20 111/71 04/06/18 09:05 111 H 04/06/18 09:00 118 H 04/06/18 08:55 107 H 04/06/18 08:50 104 H 04/06/18 08:45 135 H 04/06/18 08:40 92 H 04/06/18 08:35 100 H 04/06/18 08:30 94 H 04/06/18 08:25 99 H 04/06/18 08:20 89 04/06/18 08:15 97 H 04/06/18 08:10 37.3 C 96 H 93 H 19 107/73 04/06/18 08:05 101 H 04/06/18 08:00 85 04/06/18 07:55 85 Pulse Ox 04/07/18 07:39 96 04/07/18 03:46 95 04/07/18 00:30 04/06/18 23:19 97 04/06/18 20:00 100 04/06/18 17:11 97 04/06/18 16:00 04/06/18 15:50 98 04/06/18 12:21 99 04/06/18 12:20 98 04/06/18 12:16 99 04/06/18 12:15 99 04/06/18 12:11 99 04/06/18 12:10 99 04/06/18 12:06 99 04/06/18 12:05 99 04/06/18 12:01 99 04/06/18 12:00 100 04/06/18 11:56 98 04/06/18 11:55 99 04/06/18 11:51 97 04/06/18 11:50 99 04/06/18 11:46 98 04/06/18 11:45 96 04/06/18 11:41 95 04/06/18 11:40 94 04/06/18 11:36 94 04/06/18 11:35 90 04/06/18 09:24 20 L 04/06/18 09:05 04/06/18 09:00 04/06/18 08:55 04/06/18 08:50 04/06/18 08:45 04/06/18 08:40 04/06/18 08:35 04/06/18 08:30 04/06/18 08:25 04/06/18 08:20 04/06/18 08:15 04/06/18 08:10 98 04/06/18 08:05 04/06/18 08:00 04/06/18 07:55 Pain Intensity Right Flank: Pain Intensity: 2 Notes Mental Status: alert / awake / arousable and participated in evaluation Nausea / Vomiting: adequately controlled Pain: adequately controlled Airway Patency, RR, SpO2: stable & adequate BP & HR: stable & adequate Hydration State: stable & adequate
--- NOTE | 2018-04-07 07:56 | Urology Progress Note ---
Date of Service April 07, 2018 Assessment & Plan (1) Calculus of proximal right ureter: (2) Renal colic: (3) Complicated UTI (urinary tract infection): 23yo F POD #1 s/p R ureteral stent placement Dx: obstructing 4mm R ureteral stone, mild hydronephrosis, pyelonephritis Hx of adrenall insufficiency - taking hydrocortisone BID for management. Still feeling generally weak and nauseated today, fevers overnight. Not unexpected in the setting of pyelonephritis, fevers may persist off and on for the next 3-4days despite correct abx regimen. WBC and Cr within normal limits. UC&S reveals >100,000 cfu Klebsiella, pansensitive except nitrofurantoin. Recommend 14 day course of antibiotics based upon sensitivities, will address stone once urine is sterile as an outpatient. Continue flomax, pyridium, pain control per primary service. Please avoid NSAIDs. We will arrange outpatient f/u in 2 weeks with [facility], with Dr. Canales. Definitive stone management to be addressed at that time. Discussed plan in detail with patient, all questions answered. Thank you for allowing us to participate in the care of Ms. Carlos. Please contact us with any additional concerns, questions or changes in patient status. Subjective 23yo F POD #1 s/p R ureteral stent placement Still having fevers overnight, high of 38.8C at midnight Some nausea but able to tolerate solid food last evening, no emesis Some dysuria, mild flank pain but relates more to hospital mattress than stent Otherwise doing well, no further complaints or issues. Review of Systems All systems reviewed & are unremarkable except as noted in HPI & below Constitutional: + fever (last evening) and + fatigue; no chills Gastrointestinal: + nausea; no abdominal pain and no vomiting Genitourinary (Female): + dysuria and + urinary frequency; no urinary hesitancy and no hematuria Physical Exam 2 Vital Signs (Past 24 Hours): Last Vital Signs Temp 37.1 C 04/07/18 07:39 Pulse 90 04/07/18 07:39 Resp 16 04/07/18 07:39 BP 123/77 04/07/18 07:39 Pulse Ox 96 04/07/18 07:39 Constitutional: cooperative; no acute distress Eyes: no photophobia ENMT: Nose: no epistaxis Neck: trachea midline Respiratory: no respiratory distress, no labored breathing and does not use accessory muscles Cardiovascular: Vessels: no JVD Gastrointestinal (Abdomen): Percussion/Palpation: abdomen soft; abdomen nontender Skin: no rashes, warm and dry Neurologic: awake; not confused Psychiatric: Orientation: alert and oriented x 3 Apperance: appropriately groomed Eye Contact: good eye contact
[2018-04-07] MEDS: PHENAZOPYRIDINE HCL 200 MG TAB PO SCH ×2 (08:05→14:24)
[2018-04-07] MEDS: ONDANSETRON INJ 2 MG/ML 2 ML VIAL IV PRN (08:05)
[2018-04-07] MEDS: HYDROCORTISONE 10 MG TAB PO SCH ×2 (08:05→14:24)
[2018-04-07] MEDS: CIPROFLOXACIN 500 MG TAB PO SCH (08:06)
[2018-04-07] MEDS ORDERED: Nursing to Pharmacy Communication ONE (10:17)
--- NOTE | 2018-04-07 18:36 | Discharge Summary ---
Date of Service April 07, 2018 Admission HPI Per Admitting Provider 23-year-old female presents for the second time in 24 hours for severe right- sided flank pain and persistent vomiting on arrival home. She presented to the ER overnight last night after being awoken with severe right-sided flank pain. She was diagnosed with a kidney stone and felt better after pain medications so was sent home with oxycodone and Flomax. She did not fill the Flomax and try to take an oxycodone but vomited it up. Her pain persisted so she came back to the ER. A white blood cell count is 13 and she is now more tachycardic. She denies any fevers or chills. Urinalysis reveals contamination, but with dysuria UTI is suspected. She underwent an abdomen and pelvis CT without contrast which revealed an obstructing 4 mm proximal right ureteral calculus with resultant right-sided hydronephrosis. She also had bilateral nonobstructing largely punctate renal calculi that were seen. She does have a history of frequent kidney stones, quoting 11 episodes in the past. She denies ever being stented before and has never had surgery to have these removed. She does admit to drinking excessive coffee and soda products, and not using as much water to stay hydrated as she should. She does have a history of congenital adrenal hyperplasia and takes Cortef regularly. Her stress dose is typically double her typical dose (25mg daily), however at this time she is vomiting and unable to tolerate p.o. Her abdominal/flank pain is improved somewhat with Dilaudid in the ER. She is also been given Zosyn and IV fluids as well as Zofran. Of note, she has recently moved to the area from [facility] and does not have an established primary care physician. Review of systems reveals abnormal uterine bleeding, occurring since her Mirena IUD was removed in October 2017. She has not seen a air bag builder for this issue as she still needs to establish care in this area. She reports her menstrual cycle is very heavy, and comes every 3 weeks. She denies intercourse at this time, but otherwise is not using any contraception. Urine test is negative today. Dr. Tello was contacted with [facility] urology and will plan to stand her tomorrow if she does not spontaneously pass her stone. Principal Diagnosis Renal stone Discharge Exam GENERAL: No sign of distress, HEENT: Sclera nonicteric, pink-purple bilateral equal reactive to light extraocular muscle intact Normal oral mucosa, neck: No JVD, no thyromegaly, trachea midline Lungs: Clear to auscultate, no wheeze or rales Cardiovascular: Regular S1 and S2, no murmur or gallop, no JVD, no lower extremity edema Abdomen: Soft, nontender, bowel sounds active, no hepatosplenomegaly Extremities: No rash or deformity, normal joint, Neuro: No focal neurological deficit, no dysarthria, no facial droop Psych: Alert awake oriented x3: Euthymic Skin: No rash LYMPH NODES: No cervical lymphadenopathy Discharge Data Allergies Allergy/AdvReac Type Severity Reaction Status Date / Time cefpodoxime Allergy Severe HIVES Unverified 04/05/18 16:27 amoxicillin AdvReac Intermediate PASS OUT, Unverified 04/05/18 16:27 LOW BLOOD PRESSURE Consultations 04/05/18 19:13 ED Decision to Admit Stat 04/05/18 21:24 Consult Urology Routine Procedures Performed Operation Date: 04/06/18 12:45 Actual Procedures p Cystoscopy, Right ureteral Stent Insertion(Right) - Fernando Canales MD Ordered Studies 04/06/18 10:30 FL [facility] Routine FL fluoroscopy <1hr Routine Hospital Course (1) Recurrent kidney stones: Presented with renal colic, Resolved after right ureteric stent placement CT abdomen pelvis: IMPRESSION: 1. Obstructing 4 mm proximal right ureteral calculus with resultant mild right hydronephrosis. 2. Bilateral nonobstructing largely punctate renal calculi. 3. Thin mural calcification in the ovaries. This is of uncertain significance. A nonurgent pelvic ultrasound could be considered on an outpatient basis though the most recent pelvic ultrasound from October was normal, when this finding was also present on the concurrent CT. Urology was consulted Status post ureteric stent placement Had temperature spike earlier this a.m., afebrile White count normal No pain or discomfort, no nausea vomiting tolerating diet well Evaluated by urology Stable to be discharged home with p.o. antibiotic, Flomax and Pyridium Outpatient follow-up scheduled at the urology clinic for stent removal (2) Complicated UTI (urinary tract infection): UTI in the setting of renal stone Urine culture gram-negative bacilli: Klebsiella-sensitive to ciprofloxacin Discharged home with ciprofloxacin 5 more days (3) Adrenal insufficiency: History of congenital adrenal hyperplasia, on Cortef 25 mg p.o. daily. Was ordered IV stress dose of hydrocortisone, patient was unable to take p.o. Patient is resumed her p.o. Cortef dose (4) DVT prophylaxis: SCDs, ambulation Full code Disposition: Stable to be discharged home today Total Time Total Time Spent Total Time Spent (In Minutes): Proximate 35 minutes Total Time Includes: Examination of the Patient, Discharge Planning and Medication Reconciliation Discharge Plan Discharge Items Patient Disposition: Home - Self-Care Reason For Visit: RENAL COLIC Discharge Diagnosis: RENAL STONE Discharge Goals: Decrease discomfort Activity: Resume your previous activity Non-emergency contact: Primary Care Provider Call non-emergency contact if: you have any medication questions Follow-up/Referrals: Fernando Canales MD [Physician] - (FOLLOW UP IN PER APPOINTMENT ) Diet: Regular Addtl Provider Instructions: FOLLOW UP WITH UROLOGY Prescriptions: New phenazopyridine [Pyridium] 200 mg Tablet 200 mg PO TID 14 Days Qty: 42 RF: 0 ciprofloxacin HCl 500 mg Tablet 500 mg PO BID 10 Days Qty: 20 RF: 0 tamsulosin 0.4 mg Capsule 0.4 mg PO HS 21 Days Qty: 21 RF: 0 Continue oxycodone 5 mg tablet 5 - 10 mg PO Q6H PRN (Reason: Pain) RF: 0 hydrocortisone 10 mg tablet 10 mg PO BID RF: 0 hydrocortisone 10 mg tablet 5 mg PO QPM RF: 0 ondansetron 4 mg tablet,disintegrating 4 mg PO Q6H PRN (Reason: nausea and vomiting) Qty: 12 RF: 0 tamsulosin [Flomax] 0.4 mg capsule 0.4 mg PO DAILY Qty: 7 RF: 0 Stand-Alone Forms: [facility] Discharge Orders: Discharge Order (Routine); Ordered 04/07/18 Ordered By: Ivonne Alanis Admission Data Admit Date/Time: 04/05/18 19:39 Attending Provider: Ivonne Alanis Admit Provider: Michealle Augustin Primary Care Provider: PCP,NO Other Providers: Michaelle Augustin ; Deniz Tello II Service: Medical Other Interventions: Discharge Summary Assessment (RN) Last Done: 04/07/18 14:42
== END 2018-04-07 16:20 | disposition home or self-care (01) | DRG 660 ==
LOC: ED 15:02 → 2E 19:39 → 3N 04-06 17:08